=== PATIENT | male | born 1980 | race Caucasian/White ===

== ENCOUNTER 2018-06-07 09:00 | Outpatient (RCR) | payer OTHER, SELFPAY ==
--- NOTE | 2018-06-07 10:03 | BH.SGPN.GN ---
Behaviors/Verbalizations/Mental Status: []Client alert and oriented, casual dress. Eye contact poor. Motor activity appropriate. Speech within normal limits. Affect constricted, mood anxious. Thoughts linear, logical, no signs of hallucinations or delusions. Client Response/Progress/Benefit: []Client responded well to session, contributing to discussion. Client appeared to connect with the quote, stating he has a hard time following through with changes in his life. Client discussed things in life that keep people stuck from obtaining mental wellness. Client listed things he would like to get rid of in his life that are contributing to his mental health symptoms. Client identified low self-esteem, anxiety, depression, fear of failure, poor concentration, and lack of motivation. Client shared if he removed these stressors he would feel more confident and driven. Client participated in the activity that promoted emotional release of things holding client back. Client reported the activity was a fun way to put things into action. Client appeared to benefit from identifying what he would like to remove from his life in order to obtain improved mental wellness.
--- NOTE | 2018-06-07 11:05 | BH.SGPN.GN ---
Behaviors/Verbalizations/Mental Status: []Client alert and oriented, casual dress. Eye contact poor. Motor activity appropriate. Speech within normal limits. Affect constricted, mood anxious, dysthymic. Thoughts linear, logical, no signs of hallucinations or delusions. Client Response/Progress/Benefit: []Client responded well to session, quiet, but participating. Client created a 30-day plan to help client get rid of one of the stressors holding him back from improved mental wellness. Client?s 30-day plan was no more ?zero days? which client described as days where he gets nothing done. Client stated he picked this stressor because by accomplishing something each day it would improve client?s self-esteem. Therapist had to gently challenge client on some of his goals within his 30-day plan as client recognized they may have been too big of goals at this time. Client appeared to benefit from creating a 30-day action plan. Progress limited as it is client?s first day in IOP. Client to continue IOP to prevent decompensation and increase mood stability.
--- NOTE | 2018-06-07 12:43 | BH.COMM ---
Communication Note - Communication with Client Communication Note: Checked in with pt after groups today as this was his first IOP session. Reports that he found the groups to be supportive and educational. Plans to attend again on Tuesday. Denies any concerns. Denies any suicidal ideations, plan, or intent. Future-oriented (daughter's b-day is tomorrow).
--- NOTE | 2018-06-09 09:05 | BH.SGPN.GN ---
Behaviors/Verbalizations/Mental Status: [] Pt eye contact fair, casually dressed, motor activity appropriate, speech normal rate and tone, mood anxious, congruent affect, thoughts linear and logical, no evidence of delusions or hallucinations. Client Response/Progress/Benefit: [] Client reported he is a lot going on right now in his life and it is hard to cope with his stressors. Client shared he is recently and is now in the process of his selling the family home. Client reported last weekend he had a major panic attack when starting to pack up his things. Client shared this weekend he is decided he is going to go stay at a hotel room when his ex- and family go to the house to empty some stuff out. Client reported he is constantly insecure and has completely lost his confidence in himself. Client shared there is a pattern of every 4-5 years in which he has a really good job, things are going well then his disorganization and difficulty completing task results in a great opportunity being thrown away. Client shared the only positive he can identify currently is his little girl just turned two. Client seemed to benefit from support from peers and expressing his thoughts and feelings. Client to continue IOP level of care to stabilize moods, improve daily functioning, and prevent decompensation. Narrative Note: []
--- NOTE | 2018-06-09 11:12 | BH.SGPN.GN ---
Behaviors/Verbalizations/Mental Status: []Client alert and oriented, neatly dressed and groomed. Eye contact good. Motor activity appropriate. Speech within normal limits. Affect flat, mood dysthymic, anxious. Thoughts linear, logical, no signs of hallucinations or delusions. Client Response/Progress/Benefit: []Client responded well to session, engaged through note-taking and sharing when prompted. Client helped the group identify healthy strategies for the different categories of coping skills. Client reported understanding the importance of having a variety of coping skills as each category serves a purpose in managing symptoms. Client created a coping skills menu of coping skills client would like to start incorporating to improve mood and reduce intensity of symptoms. Client?s menu included doing puzzles, exercising, listening to comedy stations, looking at evidence against negative thoughts, and buying himself a small reward. Client appeared to benefit from gaining numerous coping skills and from learning how each coping skill category benefits mental health. Client to continue IOP to prevent decompensation and improve functioning.
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
--- NOTE | 2018-06-09 14:02 | BH.DR.ITP ---
Initial Treatment Plan - Patient Information Visit Information: ADMISSION DATE: EXPECTED LOS: 4-6 weeks Diagnoses:: Major depressive disorder recurrent severe F 33.2 - Problems/Symptoms Problem #1:: Mood instability, depressed mood, decreased energy, difficulty concentrating, recent thoughts of Problem #2:: Anxiety Symptom:: Rumination, panic, intrusive traumatic memories
--- NOTE | 2018-06-09 14:34 | BH.MTP ---
Master Treatment Plan - Patient Information Program Physician:: Dr. Chen Primary Therapist:: Carmen Perry, [facility] - Psychiatric Diagnoses Psychiatric Diagnoses:: Major depressive disorder, recurrent, severe - rule out bipolar disorder-although patient is unable to provide history of a discrete episode of curtis in the past he has multiple symptoms suggestive of mood cycling. Anxiety. Rule out PTSD. Parasomnia-sleep walking/sleep paralysis Diagnosis Code(s):: F 33.2 - Estimated LOS Estimated LOS (in weeks):: 6 Problem/Goal #1 - Problem/Goal #1 Stated Goal:: Client will decrease depression, feeling of worthlessness, and suicidal ideation due to Major Depression Disorder through Intensive Outpatient Program. Description of Barriers: Pt's psychosocial stressors of recently , putting house on market, and potentially losing his job in July are potential barriers to treatment. Pt's distorted thought patterns, low self-confidence, and difficulty concentrating also could hinder treatment progress. Functional Impact: Pt reported symptoms have been long-standing and have been interfering with occupational function. Pt has had multiple jobs over the years which have seemed ideal but notes that he is been unable to maintain job performance. 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 Pt reports his mental health symptoms are keeping him from being able to complete his daily occupational tasks. Pt passive thoughts of with plan in April to use carbon monoxide posioning as method. Denies current plan or intention for suicide. Pt not functioning at baseline. Goal Relevant Strengths/Supports: Pt is intelligent, resilient, and verbalizes motivation to get better. Pt has a 2 year old daughter whom pt identifies as a reason to keep fighting. - Objectives Objective #1 Stated Objective: Identify and replace 3-4 negative self-talk messages that reinforce depressive symptoms. Interventions: Therapist will help client identify distorted, negative beliefs about self and world and replace those messages with positive, affirmative messages. Discharge Criteria: Client will have achieved this goal when can identify at least 3 negative self-talk messages and replace those messages with positive, affirmative messages. Target Date: 07/21/18 Review Date: 07/07/18 Objective #2 Stated Objective: Pt will decrease depressive symptoms AEB pt?s score on the DSM 5 cross-cutting measure and improve pt?s daily functioning. Interventions: Through groups and individual therapy, pt will be provided with education on cognitive distortions, mistaken beliefs, and identifying and combating negative self-talk. Therapist will assist pt with getting back into the activities she once enjoyed as well as increasing healthy coping strategies. Discharge Criteria: Pt will have met this goal when pt?s score on the DSM 5 cross cutting measure for depression has been decreased and per pt?s report daily functioning has improved. Target Date: 07/21/18 Review Date: 07/07/18 Problem/Goal #2 - Problem/Goal #2 Stated Goal:: Reduce overall frequency, intensity, and duration of the anxiety so that daily functioning is not impaired. Description of Barriers: Pt's psychosocial stressors of recently , putting house on market, and potentially losing his job in July are potential barriers to treatment. Pt's distorted thought patterns, low self-confidence, and difficulty concentrating also could hinder treatment progress. Functional Impact: Pt reported symptoms have been long-standing and have been interfering with occupational function. Pt has had multiple jobs over the years which have seemed ideal but notes that he is been unable to maintain job performance. 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 Pt reports his mental health symptoms are keeping him from being able to complete his daily occupational tasks. Pt passive thoughts of with plan in April to use carbon monoxide posioning as method. Denies current plan or intention for suicide. Pt not functioning at baseline. Goal Relevant Strengths/Supports: Pt is intelligent, resilient, and verbalizes motivation to get better. Pt has a 2 year old daughter whom pt identifies as a reason to keep fighting. - Objectives Objective #1 Stated Objective: Client will learn and utilize 2-3 healthy coping strategies to manage his mental health symptoms. Interventions: Therapist will help client develop insight into his mental health triggers and help him find strategies to help manage his symptoms. Discharge Criteria: Client will have met this goal when can identify and has consistently utilized at least 2 healthy coping strategies that help manage his anxious symptoms. Target Date: 07/21/18 Review Date: 07/07/18 Objective #2 Stated Objective: Pt will decrease anxious symptoms AEB pt?s score on the DSM 5 cross-cutting measure improve pt?s daily functioning. Interventions: Through groups and individual therapy, pt will be provided education about anxiety?s impact on body and common physiological reaction to anxiety. Therapist will teach pt appropriate breathing techniques and build healthy coping skills to manage daily anxieties. Discharge Criteria: Pt will have met this goal when pt?s score on the DSM 5 cross cutting measure for anxiety has been decreased and per pt?s report daily functioning has improved. Target Date: 07/21/18 Review Date: 07/07/18
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
--- NOTE | 2018-06-12 09:00 | BH.SGPN.GN ---
Behaviors/Verbalizations/Mental Status: []Client alert and oriented, dress casual, hygiene good. Eye contact poor, often looking away when talking to therapist. Motor activity appropriate. Speech within normal limits. Affect constricted, mood-reporting slightly optimistic. Thoughts linear, logical, no signs of hallucinations or delusions. Reviewed client?s symptom tracker, no risk for suicidal ideation, plan, or intent as of 06/12/18. Client Response/Progress/Benefit: []Client responded well to session, active participant. Client reports feeling ?slightly optimistic? today as client read a book recommended by [facility] psychiatrist over the weekend which helped client gain insight and hope regarding his mental illness. Client shared he is having ?restless? energy [place] Client reported he recognizes these might be warning signs, and client would like to ?let the medication start working? before making any decisions. Client reported ?I can?t pull anything else down, I?ve lost my , job, and daughter.? Client shared although he has a lot of stressors, client is trying to challenge his perspective and think more positively. Client appeared to benefit from reflecting on positives despite current stressors. Progress noted as client reports increased hope, but he continues to struggle with mood instability and negative thinking.
--- NOTE | 2018-06-12 10:12 | BH.SGPN.GN ---
Behaviors/Verbalizations/Mental Status: []Client alert and oriented, casually dressed and groomed. Eye contact good. Motor activity appropriate. Speech within normal limits. Affect congruent, mood euthymic. Thoughts linear, logical, no signs of hallucinations or delusions. Client Response/Progress/Benefit: []Pt was an active participant in discussion and activity as evidenced by pt listening throughout, providing input, and taking notes. Group worked together to come up with common negative forces in their lives which can hold them back from growth. Negative forces included: mental illness, negative thoughts, toxic people, and too many responsibilities. Group then worked together to identify common positive forces which help us grow. These included: Healthy coping skills, positive support, self-care, positive self-talk and asking for help/IOP tx. Pt reported agreeing with other?s definitions of personal growth. Shared that growth is learning and developing as a person after difficult experiences. Pt was attentive during psychoeducation on the importance of utilizing many aspects of positive forces to help one grow. Benefited from group with increased insight and awareness on the impact of negative and positive forces on mental wellness. Progress noted in increased insight. Recommended continued tx to reduce mental health sx severity, increase positive change behaviors, and prevent decompensation. Narrative Note: []
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
--- NOTE | 2018-06-14 11:20 | BH.SGPN.GN ---
Behaviors/Verbalizations/Mental Status: []Client alert and oriented, casually dressed. Eye contact good. Motor activity appropriate. Speech soft. Affect congruent, mood euthymic. Thoughts linear, logical, no signs of hallucinations or delusions. Client Response/Progress/Benefit: []Client responded well to session, active participant. Client was passive during the activity unless prompted by therapist. ?Client able to recognize that when he is passive his opinions and thoughts do not get heard which can make client feel like his ideas are not important. Client helped the group identify strategies to improve communication and client used assertive communication by sharing his ideas. Client?s goal for the week is to identify an accountability person who will help client practice more assertive communication. Client appeared to benefit from practicing assertive communication and setting a goal.
--- NOTE | 2018-06-16 10:20 | BH.SGPN.GN ---
Behaviors/Verbalizations/Mental Status: []Pt alert and oriented, eye contact fair, casually dressed, motor activity appropriate, speech and tone WNL, mood dysthymic, affect congruent, no evidence of delusions or hallucinations. Client Response/Progress/Benefit: []Pt active participant AEB contributing thoughts and ideas to discussion and listening attentively to others. Pt connected with the quote reporting he is often all or nothing. Stating he thinks Either I am completely successful or I have failed. Pt reported he can see how his all or nothing thinking impacts his ability to be successful with the goals in sets for himself. Pt shared his high expectations lead to a lot of disappointment because often the goals he has are unrealistic. Recognizes he is setting himself up for failure. Pt could relate to the SMART goal setting method, connecting importance of setting goals more realistically so have more success. Pt seemed to benefit from rehearsing setting short term goals during activity and learning about SMART goal setting method. Pt gained insight that right from the start in the activity he wanted to set a goal of 100, which if the group went with that goal it likely would not have been accomplished. Seemed to connect importance of smaller goals to build confidence and motivation. Narrative Note: []
--- NOTE | 2018-06-16 11:25 | BH.SGPN.GN ---
Behaviors/Verbalizations/Mental Status: [] Pt alert and oriented, eye contact fair, casually dressed, motor activity appropriate, speech and tone WNL, mood dysthymic, affect congruent, no evidence of delusions or hallucinations. Client Response/Progress/Benefit: [] Pt contributed positively to discussion and attentive to others. Pt reported his SMART goal is for the next week to research finding hobbies he might enjoy. Pt recognized he currently has no hobbies because in the past he did whatever his ex- wanted to do. Pt reported his goal will be beneficial because he will build new ways of coping and prevent self from returning to old unhealthy coping skills. Pt reported barriers could be negative self-talk and not liking to be around people. Pt shared strategies t ohelp him overcome this barrier to be reminding self of benefits of following through. Pt seemed to benefit from identifying a short term goal that will help him move closer to his intermediate card tender goal of mental wellness. Pt to continue IOP level of care to decrease depression, increase healthy coping, and prevent decompensation. Narrative Note: []
--- NOTE | 2018-06-16 13:42 | BH.MDN ---
Multi-Disciplinary Note - Note 30-min Individual Time Started:: 12:20 Date: 06/16/18 Purpose of session/treatment goals addressed:: Purpose of session was to assess pt's current symptoms and stressors. Also, explored increasing extracurricular activities, psychoeducation on bipolar disorder, and challenging distorted thought patterns. Eye Contact:: Poor Motor Activity:: Restless Appearance:: Casual Speech:: Appropriate Mood:: Dysthymic Affect:: Congruent Thoughts:: Linear, Logical Staff Interventions:: Therapist used open ended questions to elicit pt's current symptoms and stressors. Therapist provided psychoeducation about bipolar disorder common symptoms and behaviors. Therapist discussed increasing extracurricular activities, provided pt with homework to research activities that he would be interested in trying. Thearpist inquired about thought record given previous individual session for homework. Therapist worked with pt to identify and reframe distorted thought patterns. Client Response:: Pt reported Time Stopped:: 12:50
--- NOTE | 2018-06-20 10:34 | BH.MTP_ITS ---
Master Treatment Plan - Patient Information Program Physician:: Dr. Chen Primary Therapist:: Carmen Perry, [facility] - Psychiatric Diagnoses Psychiatric Diagnoses:: Major depressive disorder, recurrent, severe - rule out bipolar disorder-although patient is unable to provide history of a discrete episode of curtis in the past he has multiple symptoms suggestive of mood cycling. Anxiety. Rule out PTSD. Parasomnia-sleep walking/sleep paralysis Diagnosis Code(s):: F 33.2 - Estimated LOS Estimated LOS (in weeks):: 6 Problem/Goal #1 - Problem/Goal #1 Stated Goal:: Client will decrease depression, feeling of worthlessness, and suicidal ideation due to Major Depression Disorder through Intensive Outpatient Program. Description of Barriers: Pt's psychosocial stressors of recently , putting house on market, and potentially losing his job in July are potential barriers to treatment. Pt's distorted thought patterns, low self- confidence, and difficulty concentrating also could hinder treatment progress. Functional Impact: Pt reported symptoms have been long-standing and have been interfering with occupational function. Pt has had multiple jobs over the years which have seemed ideal but notes that he is been unable to maintain job performance. 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 Pt reports his mental health symptoms are keeping him from being able to complete his daily occupational tasks. Pt passive thoughts of with plan in April to use carbon monoxide posioning as method. Denies current plan or intention for suicide. Pt not functioning at baseline. Goal Relevant Strengths/Supports: Pt is intelligent, resilient, and verbalizes motivation to get better. Pt has a 2 year old daughter whom pt identifies as a reason to keep fighting. - Objectives Objective #1 Stated Objective: Identify and replace 3-4 negative self-talk messages that reinforce depressive symptoms. Interventions: Therapist will help client identify distorted, negative beliefs about self and world and replace those messages with positive, affirmative messages. Discharge Criteria: Client will have achieved this goal when can identify at least 3 negative self-talk messages and replace those messages with positive, affirmative messages. Target Date: 07/21/18 Review Date: 07/07/18 Objective #2 Stated Objective: Pt will decrease depressive symptoms AEB pt?s score on the DSM 5 cross-cutting measure and improve pt?s daily functioning. Interventions: Through groups and individual therapy, pt will be provided with education on cognitive distortions, mistaken beliefs, and identifying and combating negative self-talk. Therapist will assist pt with getting back into the activities she once enjoyed as well as increasing healthy coping strategies. Discharge Criteria: Pt will have met this goal when pt?s score on the DSM 5 cross cutting measure for depression has been decreased and per pt?s report daily functioning has improved. Target Date: 07/21/18 Review Date: 07/07/18 Problem/Goal #2 - Problem/Goal #2 Stated Goal:: Reduce overall frequency, intensity, and duration of the anxiety so that daily functioning is not impaired. Description of Barriers: Pt's psychosocial stressors of recently , putting house on market, and potentially losing his job in July are potential barriers to treatment. Pt's distorted thought patterns, low self- confidence, and difficulty concentrating also could hinder treatment progress. Functional Impact: Pt reported symptoms have been long-standing and have been interfering with occupational function. Pt has had multiple jobs over the years which have seemed ideal but notes that he is been unable to maintain job performance. 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 Pt reports his mental health symptoms are keeping him from being able to complete his daily occupational tasks. Pt passive thoughts of with plan in April to use carbon monoxide posioning as method. Denies current plan or intention for suicide. Pt not functioning at baseline. Goal Relevant Strengths/Supports: Pt is intelligent, resilient, and verbalizes motivation to get better. Pt has a 2 year old daughter whom pt identifies as a reason to keep fighting. - Objectives Objective #1 Stated Objective: Client will learn and utilize 2-3 healthy coping strategies to manage his mental health symptoms. Interventions: Therapist will help client develop insight into his mental health triggers and help him find strategies to help manage his symptoms. Discharge Criteria: Client will have met this goal when can identify and has consistently utilized at least 2 healthy coping strategies that help manage his anxious symptoms. Target Date: 07/21/18 Review Date: 07/07/18 Objective #2 Stated Objective: Pt will decrease anxious symptoms AEB pt?s score on the DSM 5 cross-cutting measure improve pt?s daily functioning. Interventions: Through groups and individual therapy, pt will be provided education about anxiety?s impact on body and common physiological reaction to anxiety. Therapist will teach pt appropriate breathing techniques and build healthy coping skills to manage daily anxieties. Discharge Criteria: Pt will have met this goal when pt?s score on the DSM 5 cross cutting measure for anxiety has been decreased and per pt?s report daily functioning has improved. Target Date: 07/21/18 Review Date: 07/07/18
--- NOTE | 2018-07-14 12:11 | BH.NA_ITS ---
Physical Data - Vital Signs Pulse Rate: 68 Respiratory Rate: 14 Blood Pressure: 124/82 - Height/Weight Height: 1.82 m Weight:: 97.976 kg Weight in Pounds: 216.0 lbs Current Medication Compliance - Medication Compliance Do you take your medication as prescribed?: Yes Do you need assistance with taking medication?: No Have you had side effects from medication?: No Nutritional History - Appetite Nutritional Instructions:: If client shows signs of a swallowing problem, weight change of 10 pounds or more in the last month, or is on a diabetic diet, the physician will review and request a dietitian consult, as appropriate. All unintentional weight loss will be referred to the physician for decision on need for dietitian consult. Describe your appetite:: Good Have you noticed a change in your eating habits lately?: No Functional Assessment - Sleep Pattern Describe any problems with sleeping: Client endorses excessive tiredness, taking two 2-hour naps daily - Activities Motor Activity:: Functional Sensory/Communication Assess - Hearing Problems Do you have any hearing problems?: Adequate - Communication Problems Do you have difficulty understanding what people are saying?: No Do you have trouble putting your thoughts into words or expressing what you want to say?: No Do people ever have trouble understanding what you say?: No What is your primary language?: [place] Learning Assessment - Education What is your level of education?: Master Degree - Learning Barriers Learning Barriers:: Ready to learn Medical Problems/History - Pain Assessment Do you have acute or chronic pain?: No Substance Abuse - Substance Abuse Please describe substance abuse in the last 30 days:: Past ETOH, tobacco, and illicit substance use. Last use: [id number], [id number], [id number]. Mental Status Summary - Mental Status Significant Findings/Observations on Appearance and Mood:: yS is an A&Ox4 38-year-old male who is cooperative with interview. Neat grooming and hygiene, casually dressed. Normal activity and good eye contact. Speech is clear and of normal rate and volume. Mild anxiety and depression with mood congruent affect. Logical asosciations and normal process. Average knowledge. No symptoms of delusions. Denies hallucinations, SI, and HI. Suicide Assessment - Suicidal Ideation Are you currently or have you been suicidal in the past?: Yes Suicidal Intentional Rating Scale (SIRS): Suicidal thoughts (past) - fleeting thoughts of , not necessarily SI Physician Notification: If Active suicidal thoughts/Will not contract for safety is checked, contact physician and document in the Physician Notification section below. Fall Risk Assessment - Age Age: Less than 60 - Mental Status Mental Status: Willing & able to ask for assistance when needed - Physical Status Physical Status: No problems - Impairments Impairments: None - Elimination Elimination: Continent AND independent - Gait or Balance Gait or Balance: Walks independently - Hx of Falls History of falls in the past 6 months: No known history - Medications/Substances Psychotropics:: Antidepressants, Mood stabilizers Medications/substances used within the past 24 hours or ordered to administer: 1-2 of the medications/substances listed above - Total Score Total Points:: 1 Physician Notification - Physician Notification Physician Notified: Paulette Chen Method of Notification: Face to Face Comments: treatment planning discussion RN Summary of Impressions - Impressions Recommendations: Include psychiatric and medical issues, treatment planning recommendations, and discharge planning needs. Impressions: Psychiatric Issues: bipolar 2?, PTSD, ADHD? Impression: General Medical Conditions: N/A - Level of Care How do the client's current symptoms and functional deficits support need for this level of care?: Client notes increased mental health symptoms since April 2018, which he associates with divorce from his and all of the stress surrounding that, including the sale of his house. Sy describes labile moods and inability to perform at his job. He notes that since he saw Dr. Chen, he has read the book [place], and does identify with a lot of the content. Sy endorses increased sleep at night and during the day, recognizing that it is a way of escape and avoidance. He currently has limited support with all of the life changes happening. He denies urges to drink or use illicit substances, noting maintained sobriety. IOP will promote socialization and gain while preventing further decompensation of mental health symptoms.
[2018-07-14 12:37] VITALS: BP 124/82; PULSE 68; RESP 14
== END 2018-06-18 23:59 ==
LOC: BHIOP 09:00
PROVIDERS: Visit Provider Psychiatry & Neurology Psychiatry
DX: F32.9 Major depressive disorder, single episode, unspecified (principal); F41.9 Anxiety disorder, unspecified; G47.59 Other parasomnia; F51.3 Sleepwalking [somnambulism]; G47.14 Hypersomnia due to medical condition; Z79.899 Other long term (current) drug therapy; Z87.891 Personal history of nicotine dependence
CPT/HCPCS: H0035; 90832; 90853

== ENCOUNTER 2018-06-21 09:00 | Outpatient (RCR) | payer OTHER, SELFPAY ==
--- NOTE | 2018-06-21 09:05 | BH.SGPN.GN ---
Behaviors/Verbalizations/Mental Status: []Client alert and oriented, dress casual. Eye contact fair- looking away at times. Motor activity appropriate. Speech soft. Affect constricted, mood dysthymic. Thoughts linear, logical, no signs of hallucinations or delusions. Reviewed client?s symptom tracker, no risk for suicidal ideation, plan, or intent as of 06/21/18. Client Response/Progress/Benefit: []Client responded well to session, quiet, but he was often nodding in agreement. Client reports feeling ?present? today stating, ?I feel like I can network here and it?s nice to be around people that get me.? Client identified his current positives as making it to group today despite feeling low and going to [employer] yesterday. Client reported he continues to struggle with coping with his mental health symptoms, sharing he continues to have racing thoughts, low motivation, and hypersomnia. Client stated he is hoping the medication starts working as client recognizes he knows the coping skills, but client feels unable to use them due to racing thoughts. Client appeared to benefit from emotional support and strategies provided by peers. Progress variable as client continues to struggle with lack of symptom alleviation, but he is improving with reframing negative thoughts. Client to continue IOP to prevent decompensation and medication monitoring. ?
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
--- NOTE | 2018-06-23 10:20 | BH.SGPN.GN ---
Behaviors/Verbalizations/Mental Status: [] Pt eye contact fair, casually dressed, motor activity appropriate, speech normal rate and tone, mood euthymic, congruent affect, thoughts linear and intact, no evidence of delusions or hallucinations. Client Response/Progress/Benefit: [] Client passive participant as evidenced by limited contributions to discussion however did appeared to be engaged as evidenced by making eye contact and nodding at peers comments. Client seemed to relate to others comments that her thoughts can create situations that are not really there or make his situation worse based on how one is thinking. Client connected with the distortion of mind reading because often he will believe he knows how somebody is thinking about him which increases anxiety and it impacts his decision making. Client related to many of the other distortions discussed with the group and seemed to benefit from increased awareness of cognitive distortions and how distortions can impact ones functioning. Narrative Note: []
--- NOTE | 2018-06-23 11:30 | BH.SGPN.GN ---
Behaviors/Verbalizations/Mental Status: []Pt eye contact fair, casually dressed, motor activity appropriate, speech normal rate and tone, mood euthymic, congruent affect, thoughts linear and intact, no evidence of delusions or hallucinations. Client Response/Progress/Benefit: [] Client showed increased engagement compared to previous group session as evidenced by contributions made during small group discussion and worked cooperatively with others to identify examples of distorted thought patterns. Client could relate to the distortion of over generalizing and catastrophizing. Client seemed to benefit from increased awareness of the impact start that parents can have on emotions and behavior as well as having opportunity to practice reframing and challenging distorted thoughts. Client to continue IOP level of care to maintain gains, stabilize mood, and prevent decompensation. Narrative Note: []
--- NOTE | 2018-06-23 14:01 | BH.MDN ---
Multi-Disciplinary Note - Note 45-min Individual Time Started:: 09:05 Date: 06/23/18 Purpose of session/treatment goals addressed:: Purpose of session was to assess current symptoms and stressors. Other topics included: gathering additional background information, review homework from last session, and discuss healthy coping skills. Eye Contact:: Poor - scans environment, makes minimal eye conact Motor Activity:: Appropriate Appearance:: Casual Speech:: Appropriate Mood:: Anxious, Depressed Affect:: Congruent Thoughts:: Linear, Logical, No evidence of hallucinations/delusions noted Staff Interventions:: Therapist used open ended questions to elicit pt's current symptoms and stressors. Therapist inquired about pt's homework from last session, discussed barriers that prevent pt from completing homework. Therapist used probing questions to gather additional backgroun information. Therapist discussed healthy coping to help with managing depressive symptoms. Therapist provided support by using active listening and validating emotions. Client Response:: Pt reported he has been having continued difficulty with managing his mental health symptoms. Pt reported having racing thoughts and low motivation. Pt shared he did not complete his homework from last individual session of identifying different extracurricular activities he could engage in. Pt identified his decreased motivation to be contributing factor to not wanting to complete his homework. Pt collaborated with therapist to identify different activities he could engage in that would get him out of the house, which could help decrease his depressed symptoms. Pt connected with therapist education about the impact of opposite action can have on decreasing depression. Pt reported he is willing to try and go on walks and he could take his dog with him. Pt open to idea of taking daughter to library to get himself out of the house and spend quality time with his daugher. Risks/Concerns:: Pt denies suicidal thoughts, plan or intention to date. Progress Toward Goals/Plan:: Pt progress decompensating AEB pt report of struggling to manage mental health symptoms. Pt struggling to apply healthy skills consistently especially when struggling with low motivation. Pt continuing to experience racing thoughts and hypersomnia. Pt having difficulty with challenging unhelpful thinking pattenrs. Pt progressing with improved awareness of his unhelpful thoughts, but struggling with applying skills. Pt to continue IOP level of care to improve mood stability, decrease depression, and prevent decompesnation. Time Stopped:: 09:50
--- NOTE | 2018-06-26 09:05 | BH.SGPN.GN ---
Behaviors/Verbalizations/Mental Status: [Client maintained good, consistent eye contact and was able to provide input to discussion. Client was casually dressed and appeared to have placed effort into attire AEB referencing wearing his favorite baseball team's apparel, appropriate grooming/hygiene. Motor activity WNL. Client speech was a normal rate and optimistic tone, mood euthymic and expressed as hopeful , affect congruent with mood, thoughts linear and logical, no evidence of delusions or hallucinations. Therapist reviewed client?s symptom tracker to assess for intensity of mental health symptoms and identify risk for suicide. No signs of suicidal ideation, plan, or intent to date.] Client Response/Progress/Benefit: [Point responded well to session and openly shared thoughts, feelings, and opinions. He did well to provide supportive feedback to fellow participants and gently challenge their use of distorted thinking patterns or unhealthy coping mechanisms. Client identified that he has been able to connect with fellow participants working on sobriety as client has previously struggled with substance use. Client benefited from reflecting upon his own progress since becoming sober and how this has impacted his mental health symptoms. He indicated that since refraining from using any mind altering substances he has felt raw emotionally and as though he is finding out who I am for the first time. Client indicated that the hardest time for him is when he is bored as this can be uncomfortable he does not note to do with himself. Client discussed additionally working on identifying healthy means for coping and not avoiding his emotions as they arise. Client displaying progress in his ability to identify areas in which she is beginning to see positive changes in his mental health and challenging himself to look at things with a more positive perspective. He indicated recently titrating up on medications and that he has been reminding himself not to give up if not seeing results as quickly as he would like. Client reports additionally working on accepting that changes the part of life and finding ways in which is able to better manage changes as they occur.] Narrative Note: []
--- NOTE | 2018-06-26 10:30 | BH.SGPN.GN ---
Behaviors/Verbalizations/Mental Status: []Client alert and oriented, neatly dressed and groomed. Eye contact fair. Motor activity appropriate. Speech within normal limits. Affect congruent, mood euthymic, anxious. Thoughts linear, logical, no signs of hallucinations or delusions. Client Response/Progress/Benefit: []Client responded well to session, active participant. Client reported one can have external conflict and internal conflict. Client described internal conflict as conflicting values, beliefs, and emotions. Client identified barriers to resolving conflict such as cognitive distortions, self-doubt, and fear of conflict. Client helped the group discuss the four different conflict resolution styles including when it is helpful and not helpful to use each style. Client shared he is most often the accommodating type as client does not share his thoughts during a conflict and lets others take control. Client reported his conflict resolution style negatively impacts client because ?I keep all my emotions in and then I explode.? Client appeared to benefit from gaining awareness of how client?s current conflict resolution style impacts mental health and relationships. Client to continue IOP as client reports improved insight, but he continues to struggle with managing negative thoughts and increased motivation.
--- NOTE | 2018-06-26 11:35 | BH.SGPN.GN ---
Behaviors/Verbalizations/Mental Status: []Client alert and oriented, neatly dressed and groomed. Eye contact good. Motor activity appropriate. Speech within normal limits, more assertive than usual. Affect congruent, mood euthymic. Thoughts linear, logical, no signs of hallucinations or delusions. Client Response/Progress/Benefit: []Client responded well to session, active participant. Client participated in the group activity and demonstrated progress as he used more assertive communication and a collaborative conflict resolution style to help the group make decisions. Client shared focusing on the issues and weighing the pros and cons positively impacted conflict resolution. Client helped the group identify strategies to more effectively manage conflict such as focusing on the most important thing, using calm tone of voice, managing stress, and working on one issue at a time. Client shared he wants to become more assertive in conflict, so he can get his ideas heard and his needs met. Client to continue IOP as he reports increased self-awareness, but client continues to struggle low motivation and following through with goals which may hinder progress.
--- NOTE | 2018-06-29 10:10 | BH.SGPN.GN ---
Behaviors/Verbalizations/Mental Status: [] Pt eye contact fair, casually dressed, motor activity appropriate, speech normal rate and tone, mood dysthymic, congruent affect, thoughts linear and intact, no evidence of delusions or hallucinations. Client Response/Progress/Benefit: [] Client active participant as evidenced by many contributions throughout group discussion and attentive to others. Client could relate to the quote that his thoughts and behaviors have contributed to him staying stuck and not moving towards where he wants to be in life. 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 Client seemed to benefit from increased awareness of his thought patterns and impact negative thoughts can have on progress. Narrative Note: []
--- NOTE | 2018-06-29 11:10 | BH.SGPN.GN ---
Behaviors/Verbalizations/Mental Status: [] Pt eye contact fair, casually dressed, motor activity appropriate, speech normal rate and tone, mood dysthymic, congruent affect, thoughts linear and intact, no evidence of delusions or hallucinations. Client Response/Progress/Benefit: [] Client engaged throughout discussion and completed worksheet. Client identified a thought to focus on for the worksheet to be I cannot handle change of any kind. Client identified this thought to be unrealistic because changes a part of life. Client shared the negative thought tends to lead to poor choices or no choice at all. Client shared the negative thought results in a self-defeating prophecy because he does not handle the change due to lack of effort and decision-making. Client struggled with reframing of thought but with assistance was able to identify a helpful reframe. Client identified his reframe to be in the past I have been able to handle change which shows I can do that again. Client seemed to benefit from practicing in the moment reframing and challenging his negative thoughts. Narrative Note: []
--- NOTE | 2018-06-30 09:10 | BH.SGPN.GN ---
Behaviors/Verbalizations/Mental Status: [] Pt eye contact good, casually dressed, motor activity appropriate, speech normal rate and tone, mood euthymic, congruent affect, thoughts linear and intact, no evidence of delusions or hallucinations. Reviewed client?s symptom tracker, no signs of suicidal ideation, plan, or intent as of today. Client Response/Progress/Benefit: [] Client reported one positive is he spends a nice evening with his daughter which client stated tends to put him in a positive mood. Client reported another positive is finally getting the mental health treatment he has needed because he feels like he is being listened to and making forward progress. Client stated his stressor currently is needing to find a apartment before his house closes on July 24. Client stated feeling optimistic this morning. Client demonstrating progress as evidenced by increased focus on the positive and increased hope he can get through his stressors. Client to continue IOP level of care to stabilize moods, maintain gains and prevent decompensation. Narrative Note: []
--- NOTE | 2018-06-30 14:02 | BH.MDN ---
Multi-Disciplinary Note - Note 60-min Individual Time Started:: 10:10 Date: 06/30/18 Purpose of session/treatment goals addressed:: Purpose of session was to assess pt's current symptoms and stressors. Other topic: processed recent stressor and identified consequences of procrastination. Eye Contact:: Poor Motor Activity:: Restless Appearance:: Casual Speech:: Appropriate Mood:: Anxious Affect:: Congruent Thoughts:: Linear, Logical, No evidence of hallucinations/delusions noted Staff Interventions:: Therapist used open ended questions to elicit pt's current symptoms and stressors. Therapist elicited progress and positives from last week. Therapist processed stressor of needing to find apartment before house closes next month. Therapist assisted pt with identifying consequences of procrastination and igonring things that make pt anxious. Therapist provided support by using active listening and challenging pt's distorted thoughts. Therapist provided homework for pt to contact at least 2 apartment places to schedule a tour. Client Response:: Pt reported he is feeling more hopeful today compared to last week. Pt stated he has been spending more quality time with his daughter, which has been helpful. Pt reported his biggest stressor is needing to find an apartment before his closing date on his house next month. Pt stated he has been setting goals for himself to research apartments, but when he starts to do so he becomes overwhelmed and quits. Pt able to recognize avoidance of anxiety provoking situations is what he usually does to deal with the uncomfortable emotions. With assistance from therapist pt able to recognize if he continues to avoid the stressor of finding an apartment it will result in self sabotage because he will have no place to live once his house closes. Pt worked with therapist to identify what he is looking for in an apartment and strategies to help pt narrow down all the options which result in pt feeling overwhelmed. Pt agreeable to contact at least 2 apartment places over weekend. Risks/Concerns:: Pt denies suicidal ideation, plan or intention to date. Progress Toward Goals/Plan:: Pt demonstrating progress AEB pt reporting improved connection with his daughter becuase he is intentionally spending quality time with his daughter. Pt also progressing with improved outlook on life by challenging his distorted thoughts and focusing on any positives in his life. Pt current stressor of finding a place to live is contributing to increased anxious symptoms, however pt is aware he is reverting back to old ways of dealing with anxiety. Pt open to trying new way of dealing with anxiety by facing his stressor. Pt to continue IOP level of care to decrease anxiety, improve use of healthy coping, and prevent decompensation. Time Stopped:: 11:00
--- NOTE | 2018-07-03 09:05 | BH.SGPN.GN ---
Behaviors/Verbalizations/Mental Status: []Client alert and oriented, neatly dressed and groomed. Eye contact good. Motor activity appropriate. Speech within normal limits. Affect congruent, mood euthymic. Thoughts linear, logical, no signs of hallucinations or delusions. Reviewed client?s symptom tracker, no risk for suicidal ideation, plan, or intent as of 07/03/18. Client Response/Progress/Benefit: []Client responded well to session, smiling and connecting with peers. Client reports feeling ?optimistic? today sharing he is finally starting to see true progress and feel better. Client shared he continues to have racing thoughts, but client is able to control and challenge them. Client identified several positives including spending time with his daughter without getting anxious, actively using CBT and DBT skills, and calling apartments for his move. Client stated titrating up in medication is a stressor, but client thinks it will benefit him. Client contributes his progress to coping skills, medication, and support given by IOP stating, ?coming here was huge, I feel like I belong for once.? Client appeared to benefit from reflecting on progress. Progress noted as evidenced by improved outlook and symptoms managements, but he can continue to benefit from maintenance and challenging all or nothing thoughts.
--- NOTE | 2018-07-03 10:15 | BH.SGPN.GN ---
Behaviors/Verbalizations/Mental Status: []Client alert and oriented, neatly dressed and groomed. Eye contact good. Motor activity appropriate. Speech within normal limits. Affect congruent, mood euthymic. Thoughts linear, logical, no signs of hallucinations or delusions. Client Response/Progress/Benefit: []Pt listened attentively to others and contributed to discussion at times. Pt reported having social support is helpful because when he doesn't have support it makes he feels lonely and more anxious. Pt shared he recognizes of the years some of the people in his life whom he though were supportive are unhealthy and impacted his mental health. Pt could relate to others that having support is beneficial to have accountability and someone to openly share thoughts and feelings with instead of stuffing emotions. Pt seemed to benefit from reflecting on the impact the various types of support has had on him, as well as group discussion about positive qualities of a healthy support person. Narrative Note: []
--- NOTE | 2018-07-03 11:15 | BH.SGPN.GN ---
Behaviors/Verbalizations/Mental Status: []Client alert and oriented, casually dressed and neatly groomed. Eye contact good. Motor activity appropriate. Speech within normal limits. Affect congruent. Mood anxious. Thoughts linear, logical, no signs of hallucinations or delusions. Client Response/Progress/Benefit: []Pt engaged and active participant AEB sharing thoughts and feelings as well as listening to others. pt able to identify benefits to the different types of social support. Pt identified it's important to remember that he can't control other people's reactions and needs to focus on what he can control instead of ruminating on what is out of his control. Pt identified he thinks increasing his personal relationships would be helpful to him. Pt seemed to benefit from increased awareness of the different types of social support. Pt to continue IOP to stabilize moods and prevent decompensation. Narrative Note: []
--- NOTE | 2018-07-03 16:32 | BH.MDN ---
Multi-Disciplinary Note - Note 45-min Individual Time Started:: 12:19 Date: 07/03/18 Purpose of session/treatment goals addressed:: Purpose of session was to assess pt's current symptoms and stressors. Other topics: reviewed homework and discussed healthy coping/calming skills. Eye Contact:: Fair Motor Activity:: Appropriate Appearance:: Casual Speech:: Appropriate Mood:: Euthymic Affect:: Congruent Thoughts:: Linear, Logical, No evidence of hallucinations/delusions noted Staff Interventions:: Therapist used open ended questions to elicit pt's current symptoms and stressors. Therapist reviewed homework from last session. Therapist processed current stressor, discussed strategies that have helped pt move foward. Provided psychoeducation about calming strategies that can help pt manage his mental health symptoms. Support provided by using active listening. Client Response:: Pt reported he is feeling more optimistic today compared to last week. Pt reported he followed through with his goal of calling apartment places to set up tour. Pt stated he has been able to set up one tour, but reported he can't take the tour until he fills out a ton of paperwork in regards to financial situation and employment. Pt noted some concern it will take him a long time to complete the paperwork because might get overwhelmed. With coaching pt recognized he was jumping to conclusions and able to remind himself the importance of breaking up the paperwork into manageable parts. Pt connected with the breathing and grounding tools taught to him. Pt agreeable to try out the different skills discussed today to help him manage his anxieties around the apartment search. Risks/Concerns:: Pt denies suicidal ideation, plan or intention to date. Progress Toward Goals/Plan:: Pt demonstrating progress AEB pt following through with goal of calling apartment places. Pt stated in the past this is a task he would have avoided because it would be too anxiety provoking. Pt making strides with increased independence and at times able to manage anxious symptoms enough to help him complete a task. Pt to continue IOP level of care to stabilize moods, decrease anxiety, and prevent decompensation. Time Stopped:: 12:57
--- NOTE | 2018-07-05 09:05 | BH.SGPN.GN ---
Behaviors/Verbalizations/Mental Status: [] Eye contact is good. Motor activity is appropriate. Appearance is casual. Speech is Appropriate. Mood is anxious. Affect is congruent. Thoughts are linear and logical. No evidence of psychosis. Reviewed daily check in sheet and no reports of suicidal ideations or intent. Client Response/Progress/Benefit: [] Pt spoke only when prompted however appeared attentive during group discussion AEB heading nodding. Emotions for today was fearful of the future. Shared with the group that he is continuing to search for apartments and feels that he is making progress. Continues to report daily mood management issues and concerns and does not feel that he is at baseline. Shared that he is at times more drowsy with anhedonia however understands that he medication is not quite at therapeutic level. Shared that he feels that he is improving as evidenced by reduction in racing thoughts and increased concentration (able to read books). Benefited from group support and encouragement. Progress noted per pt report. Will continue in IOP to prevent decompensation, stabilize mood, and increase daily functioning to return to work. Narrative Note: []
--- NOTE | 2018-07-05 10:14 | BH.SGPN.GN ---
Behaviors/Verbalizations/Mental Status: [Client actively engaged and positive group participant. He maintained good eye contact. Client casually and comfortably dressed - wearing a hat. Appropriate grooming/hygiene. Motor activity WNL - appearing calm/relaxed. Client speech was a normal rate and tone - utilized humor and thoughtful remarks, mood euthymic -self-reflective, affect congruent with mood, thoughts linear and logical, no evidence of delusions or hallucinations.] Client Response/Progress/Benefit: [Client responded well to session and remained engaged throughout. He worked with the group to discuss the importance of change and the role change can play in mental health sx management as well as how not making changes can also impact mental health. Client provided several examples when brainstorming with the group potential reasons change may be a difficult thing to accomplish and appeared to benefit from reflecting upon the healthy changes he would like to implement in his own life as well as the potential barriers to making those changes. Client making progress regarding insight into his own personal barriers as well as how they impact his ability to make progress and further indicated that poor boundaries, lack of motivation and accountability, as well as negative self-talk has prevented him from improving his overall self-esteem and willingness to prioritize his own mental health needs. Client indicated connecting with several of the barriers shared by fellow participants regarding making healthy changes and could identify areas in his own life he struggles with similar issues. Client would benefit from continued IOP tx with focus on addressing challenging self-doubt and negative core-beliefs. ] Narrative Note: []
--- NOTE | 2018-07-07 09:15 | BH.SGPN.GN ---
Behaviors/Verbalizations/Mental Status: []Client alert and oriented, neatly dressed and groomed. Eye contact fair. Motor activity appropriate. Speech within normal limits. Affect congruent, mood euthymic, anxious. Thoughts linear, logical, no signs of hallucinations or delusions. Reviewed client?s symptom tracker, no risk for suicidal ideation, plan, or intent as of 07/07/18. Client Response/Progress/Benefit: []Client responded well to session, receptive to feedback from peers. Client reports feeling ?optimistic? today as client has seen progress with his hypersexual thoughts reducing and he has come to the realization ?that I matter and can say no.? Client reports his current stressor is setting a boundary with his ex- regarding selling their home. Client shared ?I?ve always given her whatever she wanted and felt like my boundaries didn?t matter.? Client recognized his low self-esteem and difficulty setting boundaries comes from his childhood. Client was receptive to feedback from peers and reported group has helped him realize he is not alone. Client also shared group has helped him fail in a structured setting and realize he is okay. Client reports plan to remind himself of the positives of setting this boundary to reduce anxiety. Client appeared to benefit from support given by peers and from reflecting on progress. Progress noted as shown by client?s improved mood, but he continues to struggle with low self-esteem and communicating his needs.
--- NOTE | 2018-07-07 12:14 | PN_ITS ---
Progress Note Patient is seen in follow-up for major depressive disorder rule out bipolar disorder, anxiety, PTSD. History is been obtained per interview with patient, discussion with staff, review of chart. Case discussed with treatment team. Chief complaint -Mood symptoms A little edge off of it Interim history Mixed mood symptoms persist but of decreased intensity over the past 3-4 weeks. Continued depressive symptoms wax and wane. Continues to have racing thoughts but of decreased intensity. Less hypersexual. Decreased irritability. Attr ibutes improvement to coping skills gained through IOP and initiation of Lamictal. Staff identifies dependent traits in dynamics with during family session. No suicidal or homicidal ideation. No symptoms consistent with psychosis. Sleeping from midnight to 7 AM. Describes sleep as restful and improved. Appetite normal. Denies nausea vomiting or diarrhea. Consuming 1 extra large [employer] coffee in the morning and 3 caffeinated sodas before 3 PM. Reports this is a reduction in caffeine. Denies ingestion of alcohol. Compliant with Lamictal 75 mg daily. No rash. Denies adverse effects. Mental status exam Alert and oriented . No acute distress. Ambulatory with normal gait and station. Appears stated age. Casually dressed and groomed. Appropriate hygiene. Cooperative with interview. Good eye contact. No psychomotor agitation or retardation. Mood mildly depressed but improved. Affect congruent. Speech is clear and with regular rate and rhythm. Language fluent. Thought process organized. Associations logical. Thought content significant for ruminative anxiety. No suicidal or homicidal ideation related or detected. No symptoms consistent with psychosis noted or detected. Immediate recent and remote memory grossly intact. Attention and concentration are fair. Estimated intelligence and fund of knowledge average. Judgment and insight good. Lab work is been requested from primary care physician. Further lab work will be obtained as needed. Diagnosis Major depressive disorder. Rule out bipolar disorder-although patient is unable to provide a history of a discrete episode of curtis in the past he has multiple symptoms suggestive of mood cycling. Anxiety Rule out PTSD Parasomnia-sleep walking/sleep paralysis Plan Continue IOP. Structured setting is necessary to maintain gains and prevent decompensation. Risk-benefit alternative of medications discussed with patient. Patient acknowledges understanding. Increase Lamictal to 100 mg daily starting this Tuesday. Dispense number 3100 mg tablets with 1 refill. Ongoing alcohol abstinence encouraged. Cannabis abstinence encouraged. Encouraged to reduce caffeine. Encouraged to establish with outpatient providers for when IOP complete. Patient acknowledges understanding and is in agreement with plan. Feels able to maintain safety. Agrees to seek help or emergency care if feeling unsafe to self or others. 16 minutes supportive psychotherapy provided.
--- NOTE | 2018-07-10 09:03 | BH.SGPN.GN ---
Behaviors/Verbalizations/Mental Status: [Client maintained good eye contact, casually and comfortably dressed, motor activity WNL, speech normal rate and tone, mood euthymic, positive expressed as optimistic, affect congruent, bright, thoughts linear and logical, no evidence of delusions or hallucinations. Therapist reviewed client?s symptom tracker to assess for intensity of mental health symptoms and identify risk for suicide. No signs of suicidal ideation, plan, or intent to date.] Client Response/Progress/Benefit: [Client receptive of session and engaged in discussion throughout. Client benefitted from reflecting with the group upon areas of in which he has begun to recognize in his own life. Client discussed that for the first time since beginning the IOP program he has felt actually optimistic. CLient went on to explain that he had previously expressed the sentiment but that he had not really believed it when saying it. Client reflected that he is noticing changes and improvements in his ability to better manage anxiety as well as use the information he had learned regarding warning signs and triggers to prevent from escalating when experiencing sx of anxiety or depression. CLient discussed spending time with his daughter over the weekend and engaging in self-care activities such as walking and going for a jog which he indicated had contributed in lessening his overall worries and decreased rumination by allowing for client to be more present. CLient progressing in overall ability to consistently apply skills learned and internalize treatment content discussed. Client continues to report difficulties in maintaining healthy boundaries with others and would benefit from working to further improve use of assertive communication and healthy boundary setting.] Narrative Note: []
--- NOTE | 2018-07-10 10:32 | BH.SGPN.GN ---
Behaviors/Verbalizations/Mental Status: [] Pt eye contact good, casually dressed, motor activity appropriate, speech normal rate and tone, mood euthymic, congruent affect, thoughts linear and intact, no evidence of delusions or hallucinations. Client Response/Progress/Benefit: [] Client active and engaged throughout group session as shown by client 200,000 feelings throughout discussion as well as listening attentively to others. Client reported starting to see impossible situations as opportunities is a significant perspective shift. Client shared he can think of many situations throughout his life in which she thought something was impossible which resulted in him not trying. Client could connect with the impact predicting the future or negative thoughts can have on trying something new. Client seemed to benefit from increased awareness of how it is important to challenge his negative mindset and problem solve a different idea to overcome something that seems impossible to complete. Narrative Note: []
--- NOTE | 2018-07-10 11:37 | BH.SGPN.GN ---
Behaviors/Verbalizations/Mental Status: [] Pt eye contact good, casually dressed, motor activity appropriate, speech normal rate and tone, mood euthymic, congruent affect, thoughts linear and intact, no evidence of delusions or hallucinations. Client Response/Progress/Benefit: []Pt active and engaged throughout session AEB many contributions to discussion and listening attentively to others. Pt reported it's important to focus on challenging and reframing thought patterns because he recognizes often times the way he thinks will impact the way he behaves. Pt stated he can talk himself out of trying something new because he doesn't think it's something he can do. Pt shared another strategy to overcome what seems impossible is to utilize healthy support system for encouragement. Pt seemed to benefit from learning different strategies to help him get out of comfort zone and overcome difficult situations. Pt to continue IOP level of care to stabilize mood and prevent decompensation. Narrative Note: []
--- NOTE | 2018-07-12 09:10 | BH.SGPN.GN ---
Behaviors/Verbalizations/Mental Status: []Client alert and oriented, neatly dressed and groomed. Eye contact fair- client appears to have a hard time maintaining eye contact. Motor activity appropriate. Speech within normal limits. Affect full, mood euthymic. Thoughts linear, logical, no signs of delusions or hallucinations. Therapist reviewed client's symptom tracker, no signs of risk AEB client denying suicidal ideation, plan, and intent as of 07/12/18. Client Response/Progress/Benefit: []Client responded well to session, engaged and positive. Client reports he is in a good mood today because I'm taking maco in the misery of others. Client shared he had set a boundary with his family earlier this year and he is glad he did because now they are tearing each other apart and I don't have to worry about it. Client identified numerous positives today including having his daughter last night, doing crafts with her, and then taking her to school this morning. Client shared he felt capable and did not have anxiety at all while with his daughter. Client reports medication is a stressor as client just titrated up and felt fatigued form it. Client stated he is trying to stay positive and remind himself the medication helped before. Client appeared to benefit from reflecting on positives. Client to continue IOP to promote gains and increase mood stability.
--- NOTE | 2018-07-14 09:01 | BH.SGPN.GN ---
Behaviors/Verbalizations/Mental Status: [Client maintained fair eye contact throughout - often times looking around the room rather than making eye contact with those who were speaking. Client was casually dressed, appropriate grooming/hygiene. Motor activity WNL - client slouching forward with head in hands. Client speech was a normal rate and tone, mood euthymic, relieved, affect congruent with mood, thoughts linear and logical, no evidence of delusions or hallucinations. Therapist reviewed client?s symptom tracker to assess for intensity of mental health symptoms and identify risk for suicide. No signs of suicidal ideation, plan, or intent to date.] Client Response/Progress/Benefit: [Client receptive of session, willing to engage and openly discuss with the group. Client reports having had an uncomfortable meeting with someone in which he felt led him to fall back into old habits. Client did not further elaborate. He indicated that he did well to avoid ruminating about the exchange after the fact which is an improvement compared to previously. Client appears to be making progress on his ability to identify and challenge distorted thinking patterns. He benefitted from identifying areas of progress and discussing recent positives despite having a difficult experience on the previous date. CLient discussed looking forward to taking his daughter trick or treating this weekend. Recommended continued IOP to prevent decompensation and further improve treatment goal progress.] Narrative Note: []
--- NOTE | 2018-07-14 10:12 | BH.SGPN.GN ---
Behaviors/Verbalizations/Mental Status: []Client alert and oriented, neatly dressed and groomed- new outfit. Eye contact good. Motor activity appropriate. Speech within normal limits. Affect congruent, mood euthymic. Thoughts linear, logical, no signs of hallucinations or delusions. Client Response/Progress/Benefit: []Client responded well to session, active participant. Client reported some stress is positive, but too much stress can lead to increased depression, anxiety, and physical problems. Client discussed with the group how stress impacts a person emotionally, physically, behaviorally, and cognitively. Client identified current stressors in his stress jar to be housing, career choices, and relationship issues. Client reported his stress jar is not full right now. Client shared he has been able to manage his mental health better since starting IOP due to implementing healthy coping skills and medication management. Client appeared to benefit from identifying current stressors and reflecting on progress. Progress noted as shown by client?s increased mood stability, but he can continue to benefit from challenging negative thoughts and setting boundaries.
--- NOTE | 2018-07-14 11:16 | BH.SGPN.GN ---
Behaviors/Verbalizations/Mental Status: []Client alert and oriented, neatly dressed and groomed. Eye contact good. Motor activity appropriate. Speech within normal limits. Affect brighter, mood euthymic. Thoughts linear, logical, no signs of hallucinations or delusions. Client Response/Progress/Benefit: []Client responded well to session, engaged in activity and discussion. Client participated in the group activity and the group failed in accomplishing the goal. Client stated, ?we didn?t prioritize our time and we got stuck with using only one technique.? Client reported when dealing with stress it can be helpful to try various approaches and focus on one stressor at a time. Client identified managing his emotions to the housing situation as a stressor in client?s control. Client learned about the four A?s of reducing stress. Client set a stress-management goal for the weekend which was to practice acceptance ?that some stressors will never fully go away.? Client appeared to benefit from learning stress management skills and from setting a stress-management goal. Client to continue IOP as client reports improved mood, but he continues to struggle with maintaining boundaries and using assertive communication.
--- NOTE | 2018-07-14 15:27 | BH.MDN ---
Multi-Disciplinary Note - Note 60-min Individual Time Started:: 12:26 Date: 07/14/18 Purpose of session/treatment goals addressed:: Purpose of session was to assess current symptoms and stressors. Other topics included: process positives and negatives from past week, goal setting, and started discussion about connecting pt with follow up care for when complete with [facility]. Eye Contact:: Other - scans room Motor Activity:: Appropriate Appearance:: Neat Speech:: Appropriate Mood:: Euthymic, Anxious Affect:: Congruent Thoughts:: Linear, Logical, No evidence of hallucinations/delusions noted Staff Interventions:: Therapist used open ended questions to elicit pt's current symptoms and stressors. Therapist processed pt's past week, inquiring about positives and stressors. Therapist assisted pt with setting goals for weekend to help with continuous forward progress. Therapist collaborated with pt to identify what he is looking for in regards to follow up care once discharges from [facility] level of care. Therapist provided support by using active listening and validating emotions. Client Response:: Pt reported he has been doing better this week with increased mood stability and more positive days. Pt shared he is planning to go see an apartment this weekend and hopes it will work out because it will reduce his stress immensly if he knows where he is going after closing date on his house next week. 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 Pt shared he doesn't believe there is much opportunity for him with a PhD in History in [place], [place]. 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 Pt stated he believes fear and worry have kept him from contacting his friend about the position. Pt set a goal to reach out to his friend about the job this weekend, this way he will know if he needs to start looking elsewhere for a position. Pt also set goal to go to the apartment for a tour tomorrow. Pt stated he does not feel ready for discharge due to this being the first week he has felt better in a long time. Pt expressed concern about aftercare plans for counseling and psychiatry. Pt reported he will not be returning to his previous counselor due to not having the right connection. Pt also verbally requested IOP program to not share any information about him to his previous counselor. Pt shared he is open to having a new counselor and new psychiatrist. Risks/Concerns:: Pt denies suicidal ideation, plan or intention to date. Future focused AEB looking for housing and planning for a new career. Progress Toward Goals/Plan:: Pt demonstrating progress with increased mood stability AEB pt reporting more positive days and emotional stability. Pt progressing with increased confidence AEB pt reporting increased ability to set boundaries because identifies need/importance of taking care of him. Pt continuing to work on identifying and challenging distorted and negative thought patterns. Pt experiencing increased anxiety due to concern about transitioning to a new place, after his move won't see his daughter daily, and unsure of his next career move. Pt to continue IOP level of care to maintain gains, decrease anxiety, and prevent decompensation. Time Stopped:: 13:25
--- NOTE | 2018-07-14 15:43 | BH.MDN_ITS ---
Multi-Disciplinary Note - Note 60-min Individual Time Started:: 12:26 Date: 07/14/18 Purpose of session/treatment goals addressed:: Purpose of session was to assess current symptoms and stressors. Other topics included: process positives and negatives from past week, goal setting, and started discussion about connecting pt with follow up care for when complete with [facility]. Eye Contact:: Other - scans room Motor Activity:: Appropriate Appearance:: Neat Speech:: Appropriate Mood:: Euthymic, Anxious Affect:: Congruent Thoughts:: Linear, Logical, No evidence of hallucinations/delusions noted Staff Interventions:: Therapist used open ended questions to elicit pt's current symptoms and stressors. Therapist processed pt's past week, inquiring about positives and stressors. Therapist assisted pt with setting goals for weekend to help with continuous forward progress. Therapist collaborated with pt to identify what he is looking for in regards to follow up care once discharges from [facility] level of care. Therapist provided support by using active listening and validating emotions. Client Response:: Pt reported he has been doing better this week with increased mood stability and more positive days. Pt shared he is planning to go see an apartment this weekend and hopes it will work out because it will reduce his stress immensly if he knows where he is going after closing date on his house next week. 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 Pt stated he believes fear and worry have kept him from contacting his friend about the position. Pt set a goal to reach out to his friend about the job this weekend, this way he will know if he needs to start looking elsewhere for a position. Pt also set goal to go to the apartment for a tour tomorrow. Pt stated he does not feel ready for discharge due to this being the first week he has felt better in a long time. Pt expressed concern about aftercare plans for counseling and psychiatry. Pt reported he will not be returning to his previous counselor due to not having the right connection. Pt also verbally requested IOP program to not share any information about him to his previous counselor. Pt shared he is open to having a new counselor and new psychiatrist. Risks/Concerns:: Pt denies suicidal ideation, plan or intention to date. Future focused AEB looking for housing and planning for a new career. Progress Toward Goals/Plan:: Pt demonstrating progress with increased mood stability AEB pt reporting more positive days and emotional stability. Pt pro gressing with increased confidence AEB pt reporting increased ability to set boundaries because identifies need/importance of taking care of him. Pt continuing to work on identifying and challenging distorted and negative thought patterns. Pt experiencing increased anxiety due to concern about transitioning to a new place, after his move won't see his daughter daily, and unsure of his next career move. Pt to continue IOP level of care to maintain gains, decrease anxiety, and prevent decompensation. Time Stopped:: 13:25
--- NOTE | 2018-07-17 09:05 | BH.SGPN.GN ---
Behaviors/Verbalizations/Mental Status: []Client alert and oriented, neatly dressed and groomed. Eye contact avoidant at times. Motor activity appropriate. Speech within normal limits-inappropriate remarks at times. Affect constricted, mood irritable. Thoughts linear, logical, no signs of hallucinations or delusions. Reviewed client?s symptom tracker, no risk for suicidal ideation, plan, or intent as of 07/17/18. Client Response/Progress/Benefit: []Client responded well to session, quiet at first, but then engaged. Client reports feeling ?irritated? at his ex- today as per client?s report she is ?trying to sink her teeth in and control me again.? Client?s positives from the weekend were spending time with his daughter and going trick or treating, looking at a nice apartment, and closing on his old house. Client?s stressor is dealing with his , but client was able to identify strategies to improve his mood such as remember the progress he has made and challenging negative thoughts. Client appeared to benefit from connecting with peers. Progress noted as shown by client?s report of generalizing coping skills to increase symptom management. Client to continue IOP as he continues to struggle with cognitive distortions and maintaining boundaries.
--- NOTE | 2018-07-19 09:10 | BH.SGPN.GN ---
Behaviors/Verbalizations/Mental Status: [] Eye contact is good. Motor activity is appropriate. Appearance is casual. Speech is Appropriate. Mood is euthymic. Affect is congruent. Thoughts are linear and logical. No evidence of psychosis. Reviewed daily check in sheet and no reports of suicidal ideations or intent. Client Response/Progress/Benefit: [] Pt was an active participant in group discussion. Provided appropriate feedback. Reports several positives in his life and recovery. States that he officially got his apartment which he reports is a huge step forward for him. He is excited and states that before starting the program he could never had followed through with these simple tasks. States that she is ruminating less and feels more in control of his mood citing examples of not getting angry or utilizing cognitive distortions during recent triggering events. Benefited from group praise. Will continue in IOP to maintain gains. Narrative Note: []
--- NOTE | 2018-09-17 20:57 | BH.MTP_ITS ---
Treatment Plan Review Date of Admission:: 06/06/18 Date of Treatment Plan Review:: 07/10/18 Admitting Diagnoses:: Major depressive disorder rule out bipolar disorder- although patient is unable to provide history of a discrete episode of curtis in the past he has multiple symptoms suggestive of mood cycling. Anxiety. Rule out PTSD. Parasomnia-sleep walking/sleep paralysis Current Diagnoses:: Major depressive disorder rule out bipolar disorder-although patient is unable to provide history of a discrete episode of curtis in the past he has multiple symptoms suggestive of mood cycling. Anxiety. Rule out PTSD. Parasomnia-sleep walking/sleep paralysis Patient's Response to Treatment:: Pt has been an active participant for both individual and group therapy. Pt often is actively engaged during group AEB many contributions to discussion, sharing thoughts and ideas, and participating in group activities. Pt completed homework for group and individual sessions at times, more often than not. Pt consistently has been attending IOP sessions. Pt medication compliant per self-report. Status of Current Problems and Symptoms: Pt demonstrating progress with reporting decrease in both depressive and anxious symptoms. Pt has increased self-awareness of his anxious and depressive thought patterns with improved ability to challenge and reframe unhealthy thoughts. Pt has made efforts to be more active physically by taking walks and engaging in play with his daughter. Pt showing increased independence AEB pt contacting apartment places to schedule visits, which pt reported in the past is something he could not do because he would have his ex- do those tasks. Pt continuing to struggle with self-esteem/self-confidence issues which seems to impact his ability to set boundaries at times with his ex-. Pt's lack of confidence at times increases his depressive thinking because he doesn't think he can find another romantic partner. Pt overall improvement with decreased intensity and frequency of depressive and anxious symptoms. Pt denies SI, plan or intent. Pt reports continuing to use food as a way of coping. Pt denies panic attacks. Team recommends pt continue IOP level of care to maintain gains, increase self- confidence, reinforce healthy coping, and prevent decompensation. Continued care would also be helpful for supportive and maintainence of progress during stressful event of pt moving out on his own, which is the first time pt has been on his own in over 5 years. Problem #1 Problem Name:: decrease depression, feeling of worthlessness, and suicidal ideation Status of Goals:: Objective 1 - pt has made progress on this objective. Pt is able to identify at least 3 depressive thought patterns, but struggles with consistently challenging and reframing unhealthy thought patterns. Pt has improved awareness of how his thoughts exasperate his depressed symptoms. Objective 2 - pt has made progress AEB self-report scores on DSM 5 cross cutting measure. At intake pt scored a 8 out of 8 on depressive subscale with 8 being severe and at review pt scored a 2 out of 8, which indicates signficiant reduction in depressed symptoms. Pt functioning showing improvement, however pt does report unsure if he would be able to perform his job duties at this time if he wasn't on FMLA. Team Recommendations:: Team recommends pt continue current IOP goals to maintain gains, reinforce healthy skills, and prevent decompensation. Problem #2 Problem Name:: Reduce overall frequency, intensity, and duration of the anxiety Status of Goals:: Objective 1 - Pt making moderate progress on objective AEB by pt being able to identify at least 2 healthy coping skills and has applied skills with success in managing his anxious symptoms. However, pt does struggle with consistently applying skills. Objective 2 - Pt making moderate progress on objective AEB pt's self-report scores on DSM 5 cross-cutting measure. At intake pt scored a 8 out of 12 on anxiety subscale with 12 being severe and at review pt scored a 2 out of 12, which indicates a significant reduction in anxious symptoms. In regards to pt's functioning pt reports feeling better able to manage his anxious symptoms. However pt does note he will fall into ruminations about various topics including what to do about work, ex-, daughter, and moving out to be on his own. Team Recommendations:: Team recommends pt continue current IOP goals to maintain gains, reinforce healthy skills, and prevent decompensation.
== END 2018-07-19 23:59 ==
LOC: BHIOP 09:00
PROVIDERS: Visit Provider Psychiatry & Neurology Psychiatry
DX: F32.9 Major depressive disorder, single episode, unspecified (principal); F41.9 Anxiety disorder, unspecified; G47.59 Other parasomnia
CPT/HCPCS: H0035; 90834; 90837; 90853

== ENCOUNTER 2018-07-21 09:00 | Outpatient (RCR) | payer OTHER, SELFPAY ==
--- NOTE | 2018-07-21 09:05 | BH.SGPN.GN ---
Behaviors/Verbalizations/Mental Status: [] Eye contact is good. Motor activity is appropriate. Appearance is neat. Speech is Appropriate. Mood is depression/irritable. Affect is flat. Thoughts are linear and logical. No evidence of psychosis. Reviewed daily check in sheet and no reports of suicidal ideations or intent. Client Response/Progress/Benefit: [] Pt did not speak until prompted. Did not provided feedback to peers. Emotion for today is irritable. Shared that he was irritable today and yesterday and states trigger was completing ADHD testing yesterday. Talked about the testing and frustrations. Also shared that he began to ruminate on the heritary ascpects of ADHD and Bipolar in regards to his daughter. Group was able to challenge and reframe negative thoughts. Also reports anger towards what he views as regression in symptoms and mood management. Benefited from group support and feedback. Regress noted per pt reports. Will continue in IOP to stabilize mood and improve daily functioning. Narrative Note: []
--- NOTE | 2018-07-21 10:10 | BH.SGPN.GN ---
Behaviors/Verbalizations/Mental Status: [] Pt eye contact fair, casually dressed, motor activity appropriate, speech normal rate and tone, mood anxious, congruent affect, thoughts linear and intact, no evidence of delusions or hallucinations. Client Response/Progress/Benefit: []Pt listened attentively to others and contributed thoughts and feelings throughout group. When processing the quote pt reported in the past it would have been difficult for him to believe that failing could lead to the next success, however pt noted he now is able to see that he can learn from his failures. Pt connected the concepts of having growth mindset vs fixed mindset, in which someone with growth mindset will learn from failure and someone with a fixed mindset will be devastated by failure. Noted how it's more helpful to have growth mindset because likely will stay stuck and not try anything new with a fixed mindset. Pt seemed to benefit from increased awareness of impact fear of failing can have on mental health. Narrative Note: []
--- NOTE | 2018-07-21 11:10 | BH.SGPN.GN ---
Behaviors/Verbalizations/Mental Status: [] Pt eye contact fair, casually dressed, motor activity appropriate, speech normal rate and tone, mood anxious, congruent affect, thoughts linear and intact, no evidence of delusions or hallucinations. Client Response/Progress/Benefit: []Pt active participant AEB pt listening attentively to others and contributing to discussion. Pt reported he wants to change his definition of failure to be an opportunity to learn, grown and develop. Pt reported fear has impacted him by not trying new things and not taking risks. Pt reported fear of failure is currently holding him back from: seeking new relationships and embracing/accepting change. Pt reported he can do the following to help him overcome fear of failure: changing his perspective and learning to see failure as an opportunity to grow. Pt seemed to benefit from increased awareness of how fear has impacted him and learning different strategies that can help him overcome fear. Pt to continue IOP level of care to stabilize moods, increase use of healthy skills, and prevent decompensation. Narrative Note: []
--- NOTE | 2018-07-21 15:23 | BH.MDN ---
Multi-Disciplinary Note - Note 45-min Individual Time Started:: 12:15 Date: 07/21/18 Purpose of session/treatment goals addressed:: Purpose of session was to assess current symptoms and stressors. Other topics: challenging distorted thoughts and discussing aftercare options. Eye Contact:: Other - scans room Motor Activity:: Restless Appearance:: Casual Speech:: Rambling Mood:: Anxious Affect:: Congruent Thoughts:: Circular, No evidence of hallucinations/delusions noted Staff Interventions:: Therapist used open ended questions to elicit pt's current symptoms and stressors. Therapist assisted pt with challenging distorted thoughts throughout session. Therapist processed pt's anxieties about upcoming test results in regards to potential ADHD diagnosis. Therapist provided pt with handout listing several psychiatry and counseling options in the area. Homework provided for pt to call and schedule appointments for both counseling and psychiatry. Client Response:: Pt reported he is feeling really anxious because he has his second appointment for ADHD testing in which he had to answer a multitude of questions. Pt shared he later found out one of the tests was an IQ test and pt stated I didn't put my full effort into it and now the results might show I'm stupid. Pt expressed many thoughts about his IQ coming back as normal and how that result would be detrimental for him. Pt struggled with reframing the distorted thought patterns, needed assistance from therapist. Pt fixated on the potential results of the IQ results throughout session. Pt did agree he would like to set up outpatient counseling and psychiatry once he discharges from [facility]. Pt agreeable to call and schedule appointments for both. Risks/Concerns:: Pt denies suicidal ideation, plan or intention to date. Progress Toward Goals/Plan:: Pt appears to struggle with identifying and reframing anxious thought patterns when his emotions are heightened. Pt needed lots of assistance throughout session with reframing his distorted thought patterns. Pt showing progress with being able to identify unhealthy thought patterns when in a calm state, however struggles to challenge thoughts when emotions are heightened. Pt to continue IOP level of care to establish aftercare, increase emotional regulation, and prevent decompensation. Time Stopped:: 13:00
--- NOTE | 2018-07-25 09:07 | BH.SGPN.GN ---
Behaviors/Verbalizations/Mental Status: [] Eye contact is good. Motor activity is appropriate. Appearance is neat. Speech is Appropriate. Mood is anxious. Affect is congruent. Thoughts are linear and logical. No evidence of psychosis. Reviewed daily check in sheet and no reports of suicidal ideations or intent. Client Response/Progress/Benefit: [] Pt was an active participant in group discussion on gas lighting which is when an individual manipulates someone by psychological means to questions their sanity. Emotion for today is motivated. Shared that his mood has been stable this week and he has been productive. Shared that he moved into his new apartment yesterday and slept well. Filled out paperwork online to get appt with new psychiatrist. He discussed the progress that he has made in managing his emotions and feels that the medication changes have been beneficial. Shared with the group his mental breakdowns prior to starting IOP which led to inability to manage relationships and function at work. Progress noted per pt report. Benefited from group support and feedback. Related a great deal to discussion on gas lighting and how it has impacted his mental wellness. Will continue in IOP to maintain gains. Narrative Note: []
--- NOTE | 2018-07-25 10:10 | BH.SGPN.GN ---
Behaviors/Verbalizations/Mental Status: []Eye contact is good. Motor activity is appropriate. Appearance is casual. Speech is Appropriate. Mood is anxious. Affect is congruent. Thoughts are linear and logical. No evidence of psychosis. Client Response/Progress/Benefit: []Pt active participant as evidenced by pt contributing to discussion and engaging in group activity. Pt connected with the quote that we can create problems that aren't there just by the way we think. Pt stated he can think of many situations in which he either created a problem with his thinking alone or made a situation worse because of his anxious thoughts which impacted his behavior. Pt agreed with peers problem solving requires ability and willingness to do something different and challenge distorted thought patterns. When processing activity pt noted importance of being willing to use trial and error to figure out the best solution. Pt seemed to benefit from increased awareness of a problem solving method. Narrative Note: []
--- NOTE | 2018-07-25 11:20 | BH.SGPN.GN ---
Behaviors/Verbalizations/Mental Status: []Eye contact is good. Motor activity is appropriate. Appearance is casual. Speech is Appropriate. Mood is anxious. Affect is congruent. Thoughts are linear and logical. No evidence of psychosis. Client Response/Progress/Benefit: []Pt listened attentively to others and contributed to discussion. 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 Pt identified steps can take to reach solution of decreased addiction to peanut butter bars to include: reaching cause of addiction, journal thoughts that increase cravings, and identify alternative activity to replace constantly eating the bars. Pt reported he believed the steps he identified to decrease eating peanut bars in excess are manageable.Pt seemed to benefit from identifying ways to overcome one of his identified problems. Pt to continue IOP level of care to maintain gains, decrease unhealthy coping and prevent decompensation. Narrative Note: []
--- NOTE | 2018-07-25 13:21 | BH.MDN_ITS ---
Multi-Disciplinary Note - Note 45-min Individual Time Started:: 12:17 Date: 07/25/18 Purpose of session/treatment goals addressed:: Purpose of session was to assess pt's current symptoms and stressors. Other topics included: progress review, aftercare planning, and increasing social support. Eye Contact:: Other - scans Motor Activity:: Appropriate Appearance:: Casual Speech:: Appropriate Mood:: Euthymic Affect:: Congruent Thoughts:: Linear, Logical, No evidence of hallucinations/delusions noted Staff Interventions:: Therapist used open ended questions to elicit pt's current symptoms and stressors. Therapist reviewed pt's homework from last session. Therapist challenged pt to reframe distorted thoughts during session. Therapist discussed aftercare plans for follow up care. Therapist problem solved various activities pt could engage in to increase social connections. Provided homework to reach out to his friend about a possible job in [place]. Client Response:: Pt reported he is no longer upset about the ADHD testing he completed last week, able to challenge the distorted thought patterns and move on. Pt shared he had a good weekend by spending time with his child. Pt reported he is feeling anxious about officially moving out of his home into his apartment on because he will no longer see his daughter everyday. Pt expressed conern about messing my daughter up by getting the divorce. Through reframe pt able to recognize if he stayed with his ex- the situation would have been toxic for his daughter to witness. Pt reported he did follow through with his goal of calling the potential new psychiatrist to get established with outpatient care. Pt shared he did not call a counselor to establish because of his previous counseling experience not being positive and potentially not having insurance come September. Pt willing to think about the pros and cons about going to counseling after discharge. Pt reported he wants to increase his social network, but unsure of where to start. Pt hesitant about finding a social event through [employer] website, but recognizes if he doesn't put himself out there he will not meet anyone. Pt agreeable to reach out to his friend in [place] about the potential job opportunity. Risks/Concerns:: Pt denies suicidal ideation, plan, or intention to date. Progress Toward Goals/Plan:: Pt demonstrating progress with reporting improved mood stability, ability to reframe unhelpful thoughts on a more consistent basis, and following through with some of the goals established from previous sessions. Pt reporting increased anxiety with moving from his home to an apartment on and the transition of not seeing his daughter daily. Pt able to recognize progress with following thorugh with getting a apartment and setting up utilities on his own. Concern is pt reverting back to isolative behaviors when in apartment on his own. Focus will be on increase social network and connections. To continue IOP level of care to maintain gains, increase utilization of health skills, and prevent decompensation. Time Stopped:: 12:57
--- NOTE | 2018-07-28 09:10 | BH.SGPN.GN ---
Behaviors/Verbalizations/Mental Status: [] Eye contact is good. Motor activity is appropriate. Appearance is casual. Speech is Appropriate. Mood is euthymic. Affect is full. Thoughts are linear and logical. No evidence of psychosis. Reviewed daily check in sheet and no reports of suicidal ideations or intent Client Response/Progress/Benefit: [] Pt was an active participant in group discussion. Provided appropriate feedback to peers. Emotion for today is motivated. States that he is completely moved into her apartment. Shared some good decisions that he has made recently stating that he he feels he is accomplishing tasks rather than avoiding or isolation from responsibilities. Also feels that he is managing his emotions more efficiently. Reports being future-oriented, confident, and optimistic which he has not been in several months. Progress noted per pt report. Benefited from group encouragement and praise. Will continue in IOP to maintain gains and transition to work. Narrative Note: []
--- NOTE | 2018-07-28 10:10 | BH.SGPN.GN ---
Behaviors/Verbalizations/Mental Status: []Client alert and oriented, neatly dressed and groomed. Eye contact good. Motor activity appropriate. Speech within normal limits. Affect congruent, mood euthymic. Thoughts linear, logical, no signs of hallucinations or delusions. Client Response/Progress/Benefit: []Client responded well to session, providing positive input. Client appeared to connect with the topic of conflict, sharing a personal example of a time assumptions led to conflict. Client reported conflict is uncomfortable, but ?with the right tools it can be managed.? Client stated if a person avoids conflict ?little problems will become big problems.? Client helped the group discuss the different types of conflict resolutions styles. Client reported he tends to use the accommodating type, but he is trying to get better at communicating his opinions. Client appeared to benefit from learning how the different conflict styles impact mental health and relationships. Client to continue IOP to promote gains and increase consistency of coping skill application.
--- NOTE | 2018-07-28 11:12 | BH.SGPN.GN ---
Behaviors/Verbalizations/Mental Status: [Client receptive of session, maintained good eye contact, consistent input provided. Appearance casual, appropriate grooming/hygiene. Motor activity WNL. Client speech a normal rate and tone, mood euthymic, reflective. Affect congruent with mood, bright. Client thoughts remained linear and logical, no evidence of delusions or hallucinations] Client Response/Progress/Benefit: [Client receptive of session, actively engaged in activity and discussion portions of group. Did well to provide insight to the group related to factors impacting effective conflict resolution as well as strategies for improving ability to manage conflict. Client benefitted from reflecting upon how improving mental health sx management and insight levels has in turn changed his approach to conflict. Reports using more assertive rather than accommodating or avoidant approaches since beginning IOP Client progressing in ability to use effective communication to implement and maintain healthy boundaries. Recommended continued IOP tx to improve consistency of skill application.] Narrative Note: []
--- NOTE | 2018-08-02 09:00 | BH.SGPN.GN ---
Behaviors/Verbalizations/Mental Status: []Client alert and oriented, neatly dressed and groomed. Eye contact fair. Motor activity appropriate. Speech within normal limits, but using self-depreciating language at times. Affect congruent, mood euthymic, anxious. Thoughts linear, logical, no signs of hallucinations or delusions. Reviewed client?s symptom tracker, no risk for suicidal ideation, plan, or intent as of 08/02/18. Client Response/Progress/Benefit: []Client responded well to session, engaging with peers. Client reports feeling ?overall positive? today. Client?s positives included meeting with his new outpatient provider yesterday for medication management. Client plans to attend the DBT group offered through his new provider after discharging IOP to continue making gains. Client?s ongoing stressor is having his daughter ?fulltime? while client?s ex?s finishing remodeling her new home. Client stated ?it?s a delight to have her, but it?s a lot.? Client reported having a panic attack over the weekend which, per client?s report, was triggered by numerous psychosocial stressors. Client shared ?I saw the stressors coming, but I couldn?t avoid them.? Client recognized he managed the panic attack well as he has been able to return to baseline. Client appeared to benefit from connecting with peers. Progress noted as shown by client?s increased assertive communication and generalization of healthy coping skills. Client continues to use self-depreciating language at times. Client recommended to continue IOP to promote gains and increase consistent application of healthy coping skills.
--- NOTE | 2018-08-02 10:15 | BH.SGPN.GN ---
Behaviors/Verbalizations/Mental Status: [] Pt eye contact good, casually dressed, motor activity appropriate, speech normal rate and tone, mood euthymic, congruent affect, thoughts linear and intact, no evidence of delusions or hallucinations. Client Response/Progress/Benefit: [] Client active participant as of evidenced by contributions during group discussion and attentive to others. Client noted that since starting the IOP program he has been working on understanding his triggers and warning signs which is a significant change for him. Client shared to taking him some time to gain that awareness and recognizes he still has improvement to make with this change. Client identified fear to be one thing that can hold him back from making a desired or needed change. Client able to connect with the various emotions discussed and how the emotions can impact ones change process. Client seemed to benefit from increased awareness of the change process and impact emotions can have on making change. Narrative Note: []
--- NOTE | 2018-08-02 11:25 | BH.SGPN.GN ---
Behaviors/Verbalizations/Mental Status: [] Pt eye contact good, casually dressed, motor activity appropriate, speech normal rate and tone, mood euthymic, congruent affect, thoughts linear and intact, no evidence of delusions or hallucinations. Client Response/Progress/Benefit: [] Pt contributed to discussion, listened to others and cooperative with peers. When processing activity pt able to connect how being optimistic, focusing on progress, and learning from past mistakes as strategies that can be helpful when adapting or making personal changes. Pt seemed to benefit from learning about decisional balance tool and other identified strategies to help with managing or making personal changes. Pt to continue IOP level of care to maintain gains and prevent decompensation. Narrative Note: []
--- NOTE | 2018-08-02 13:50 | BH.MDN ---
Multi-Disciplinary Note - Note 45-min Individual Time Started:: 12:27 Date: 08/02/18 Purpose of session/treatment goals addressed:: Purpose of session was to assess current symptoms and stressors. Other topics: processed recent panic attack, identified progress, and discussed tentative discharge. Eye Contact:: Fair, Other - scans Motor Activity:: Appropriate Appearance:: Casual Speech:: Appropriate Mood:: Anxious Affect:: Congruent Thoughts:: Linear, Logical, No evidence of hallucinations/delusions noted Staff Interventions:: Therapist used open ended questions to elicit pt's current symptoms and stressors. Therapist processed recent panic attack, assisting pt with identifying triggers. Therapist elicited pt's current thoughts about treatment progress. Therapist provided education about guided meditation and resources to help pt utilize skill to help decrease anxiety. Therapist collaborated with pt to discuss tentative discharge date. Therapist provided support by active listening and providing feedback. Client Response:: Pt reported on Tuesday he had a panic attack which pt identified trigger to be conversation with his ex-. With assistance from therapist pt able to also recognize he has been going through many changes in his life recently that have increased his anxious symptoms. Pt struggled initially wih identifying progress given his recent panic attack. 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 Pt reported in the past he struggled with following through with tasks and now has improved ability to complete tasks. Pt reported he followed through with his appointment for a new psychiatrist and plans to do individual and group therapy at the same agency. Pt reported currently struggling with binge eating, recent nightmares since panic attack, and increased anxiety. Pt shared his depressive symptoms have decreased. Pt reported he believes he will be ready for discharge from [facility] next week. Pt stated would like to focus on decreasing anxiety. Pt open to trying guided meditation to help decrease anxiety and help him fall back asleep when nightmares wake him up. Risks/Concerns:: Pt denies suicidal/homicial ideation, plan or intention to date. Pt future focused. Progress Toward Goals/Plan:: Pt progressing with reporting decreased depressed symptoms, following through with goals, increased daily productivity, and improved mood stability. Pt has increased awareness of his anxious thought patterns and improved ability to challenge and reframe unhelpful thought patterns. Pt had recent panic attack, struggling with increased anxiety, and nightmares that are disrupting sleep. Pt to continue IOP level of care to maintain gains, decrease anxiety, and prevent decompensation. Time Stopped:: 13:10
--- NOTE | 2018-08-03 10:06 | PCM.PN.BLA ---
Progress Note Patient is seen in follow-up for major depressive disorder rule out bipolar disorder, anxiety, PTSD. History has been obtained per interview with patient, discussion with staff, review of chart. Case discussed with treatment team. Chief complaint-mood symptoms-mood cycling Interim history Patient reports overall he feels that his mood is improving. Each day a little better. He reports decreased depression. He does however report over the past few days some symptoms possibly consistent with mild hypomania. He reports he was telling increased jokes with inappropriate humor. He felt hypersexual and impulsively spent money. His sleep is been mildly disrupted. He is going to bed at 11 PM and getting up at 7 AM. His sleep has been interrupted the past few days. He has increased ruminative anxiety. He had a panic attack on Tuesday while dealing with his ex-'s family which he recognizes as a trigger. No suicidal or homicidal ideation. No symptoms consistent with psychosis. Appetite is normal. Denies nausea vomiting or diarrhea. Consuming 2 cups of coffee daily. Denies ingestion of alcohol. Mental status exam Alert and oriented . No acute distress. Ambulatory with normal gait and station. Appears stated age. Casually dressed and groomed. Appropriate hygiene. Cooperative with interview. Good eye contact. No psychomotor agitation or retardation. Mood euthymic. Affect congruent. Speech is clear and with regular rate and rhythm. Language fluent. Thought process organized. Associations logical. Thought content significant for ruminative anxiety. No suicidal or homicidal ideation related or detected. No symptoms consistent with psychosis noted or detected. Immediate recent and remote memory grossly intact. Attention and concentration are fair. Estimated intelligence and fund of knowledge average. Judgment and insight good. Lab work has been requested from primary care physician. Further lab work will be obtained as needed. Diagnosis Major depressive disorder-possible bipolar 2 disorder. Although patient is unable to provide a history of a discrete episode of curtis in the past he has multiple symptoms suggestive of mood cycling. Anxiety Rule out PTSD Parasomnia-sleep walking/sleep paralysis Plan Continue IOP. Structured setting is necessary to maintain gains and prevent decompensation. Risk-benefit alternative of medications discussed with patient. Patient acknowledges understanding. Increase Lamictal to 200 mg daily. Patient has been compliant with 150 mg daily for more than 2 weeks. Prescription provided for Lamictal 200 mg p.o. daily. Dispense #30. 1 refill. Recommend Vistaril 25-50 mg p.o. nightly as needed insomnia. Prescription provided. Dispense #60 with 1 refill. Drug and alcohol abstinence encouraged. Encouraged to follow-up with outpatient psychiatric providers for when IOP complete. 18 minutes of supportive psychotherapy provided. Patient acknowledges understanding and is in agreement with plan. Feels able to maintain safety. Agrees to seek help or emergency care if feeling unsafe to self or others.
--- NOTE | 2018-08-04 09:10 | BH.SGPN.GN ---
Behaviors/Verbalizations/Mental Status: [] Eye contact is good. Motor activity is appropriate. Appearance is casual. Speech is Appropriate. Mood is euthymic. Affect is full. Thoughts are linear and logical. No evidence of psychosis. Reviewed daily check in sheet and no reports of suicidal ideations or intent. Client Response/Progress/Benefit: [] Pt was an active participant in group discussion. Emotion for today is excited. Shared that he is proud of himself for the way in which he is caring for his daughter full-time. Able to manage stress and understands that he does not need to be perfect and mistakes will occur. Pt is challenging and reframing thoughts as well as managing emotions. Progress noted per pt report. Benefited from group support and encouragement. Will continue in IOP to maintain gains. Narrative Note: []
--- NOTE | 2018-08-04 10:12 | BH.SGPN.GN ---
Behaviors/Verbalizations/Mental Status: [] Pt eye contact good, casually dressed, motor activity appropriate, speech normal rate and tone, mood euthymic, congruent affect, thoughts linear and intact, no evidence of delusions or hallucinations. Client Response/Progress/Benefit: []Pt active participant AEB many contributions throughout group session. Listened attentively to others and worked cooperatively with peers during challenge activity. Pt reported he connects with the quote because there have been a lot of changes he has made recently like getting a divorce and moving into an apartment on his own. Pt shared the easier path would have been to stay in the marriage, but recognized if he stayed on that path it would have ended negatively for him. Pt identified toxic relationships and self doubt to be two personal barriers that get in his way from getting off the wrong path in his life. Pt shared in the past he used alcohol and drugs to help cope which kept him on the wrong path for awhile. Pt seemed to benefit from increased awareness of impact personal pitfalls can have on ability to move forward in life. Narrative Note: []
--- NOTE | 2018-08-04 11:20 | BH.SGPN.GN ---
Behaviors/Verbalizations/Mental Status: [] Pt eye contact good, casually dressed, motor activity appropriate, speech normal rate and tone, mood euthymic, congruent affect, thoughts linear and intact, no evidence of delusions or hallucinations. Client Response/Progress/Benefit: [] Client active spent as evidenced by sharing thoughts and feelings throughout group session and listening to others. Client shared being able to clearly communicate your needs, warning signs and triggers to healthy supports can be helpful in overcoming her voiding specific pitfalls. Client reported his own personal pitfalls to include: Avoidance, masochistic behavior, not reaching out for help, people pleasing, and catastrophize. Client reported currently people pleasing to be the most challenging pitfall because he struggles with disagreement with others to avoid conflict. Client recognizes this impacts his self-esteem and confidence. Client shared his goal is to have awareness of when he is disagreement with another person and remind himself that he is his own person and worthy of sharing his thoughts. Patient demonstrating progress as evidenced by increased self-awareness of his unhealthy choices and identify what he can do to improve her situation. Narrative Note: []
--- NOTE | 2018-08-06 14:42 | BH.MDN_ITS ---
Multi-Disciplinary Note - Note 45-min Individual Time Started:: 12:27 Date: 08/02/18 Purpose of session/treatment goals addressed:: Purpose of session was to assess current symptoms and stressors. Other topics: processed recent panic attack, identified progress, and discussed tentative discharge. Eye Contact:: Fair, Other - scans Motor Activity:: Appropriate Appearance:: Casual Speech:: Appropriate Mood:: Anxious Affect:: Congruent Thoughts:: Linear, Logical, No evidence of hallucinations/delusions noted Staff Interventions:: Therapist used open ended questions to elicit pt's current symptoms and stressors. Therapist processed recent panic attack, assisting pt with identifying triggers. Therapist elicited pt's current thoughts about treatment progress. Therapist provided education about guided meditation and resources to help pt utilize skill to help decrease anxiety. Therapist collaborated with pt to discuss tentative discharge date. Therapist provided support by active listening and providing feedback. Client Response:: Pt reported on Tuesday he had a panic attack which pt identified trigger to be conversation with his ex-. With assistance from therapist pt able to also recognize he has been going through many changes in his life recently that have increased his anxious symptoms. Pt struggled initially wih identifying progress given his recent panic attack. 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 Pt reported in the past he struggled with following through with tasks and now has improved ability to complete tasks. Pt reported he followed through with his appointment for a new psychiatrist and plans to do individual and group therapy at the same agency. Pt reported currently struggling with binge eating, recent nightmares since panic attack, and increased anxiety. Pt shared his depressive symptoms have decreased. Pt reported he believes he will be ready for discharge from [facility] next week. Pt stated would like to focus on decreasing anxiety. Pt open to trying guided meditation to help decrease anxiety and help him fall back asleep when nightmares wake him up. Risks/Concerns:: Pt denies suicidal/homicial ideation, plan or intention to date. Pt future focused. Progress Toward Goals/Plan:: Pt progressing with reporting decreased depressed symptoms, following through with goals, increased daily productivity, and improved mood stability. Pt has increased awareness of his anxious thought patterns and improved ability to challenge and reframe unhelpful thought patterns. Pt had recent panic attack, struggling with increased anxiety, and nightmares that are disrupting sleep. Pt to continue IOP level of care to maintain gains, decrease anxiety, and prevent decompensation. Time Stopped:: 13:10
--- NOTE | 2018-08-07 09:05 | BH.SGPN.GN ---
Behaviors/Verbalizations/Mental Status: [] Pt eye contact good, casually dressed, motor activity appropriate, speech normal rate and tone, mood euthymic, congruent affect, thoughts linear and intact, no evidence of delusions or hallucinations. Reviewed client?s symptom tracker, no signs of suicidal ideation, plan, or intent as of today. Client Response/Progress/Benefit: [] Patient reported his positives to include spending time with his daughter all weekend, getting his Internet connected and planning to get a gym membership today. Quite sure that overall he does not have many stressors in his weekend was really relaxing and fun. Client assured and the only stressor he could identify would be experiencing nightmares anytime he titrates up on his medication. Client reported he has been having nightmares the past 4 days and waking up at least 3 or more times a night. Client shared after about 4 days his nightmares tend to stop when he adjusted the medication change. Client reported moods continue to be stable and anxiety has decreased a bit. Client demonstrating progress as evidenced by reporting decreased depression and anxiety as well as planning to increase social support in connection by joining a gym to get out of the house. Plan to continue up of care to maintain gains and prevent decompensation. Narrative Note: []
--- NOTE | 2018-08-07 10:10 | BH.SGPN.GN ---
Behaviors/Verbalizations/Mental Status: [] Eye contact is good. Motor activity is appropriate. Appearance is casual. Speech is Appropriate. Mood is anxious. Affect is congruent. Thoughts are linear and logical. No evidence of psychosis. Client Response/Progress/Benefit: [] Pt was an active participant in group discussion and activity. Provided appropriate feedback to peers. Provided insight into the definition and benefits to social support in mental wellness. Also participated in group discussion on obstacles to seeking support. Did well during activity and was able to connect activity to social supports stating that asking questions, being specific, clarifying perspectives, and clarifying emotions are necessary when seeking support. States some people have different concepts of anxiety and depression so its important to be clear on what is causing you distress to erase confusion. Benefited from psychoeducation. Progress noted as pt was able to identify the role that support plays in recovery and some obstacles to utilizing his support. Will continue in IOP to maintain gains. Narrative Note: []
--- NOTE | 2018-08-07 11:10 | BH.SGPN.GN ---
Behaviors/Verbalizations/Mental Status: [] Eye contact is good. Motor activity is appropriate. Appearance is casual. Speech is Appropriate. Mood is anxious. Affect is flat. Thoughts are linear and logical. No evidence of psychosis. Client Response/Progress/Benefit: [] Pt was attentive during group discussion and completed worksheets. Active participant during discussion on different types of social support such as mental health, spiritual,personal, and professional. Group discussed the importance of support in different settings. Completed worksheet regarding pt's support desired (personal and social support), how this support will help (improve connections, promote healthy lifestyle), and steps to take to get this support (exercise, meeting new people). Progress noted as pt was able to identify the different types of support and strategies to reach out to these supports. Will continue in IOP to maintain gains. Narrative Note: []
--- NOTE | 2018-08-09 09:05 | BH.SGPN.GN ---
Behaviors/Verbalizations/Mental Status: [] Pt eye contact good, casually dressed, motor activity appropriate, speech normal rate and tone, mood euthymic, congruent affect, thoughts linear and intact, no evidence of delusions or hallucinations. Reviewed client?s symptom tracker, no signs of suicidal ideation, plan, or intent as of today. Client Response/Progress/Benefit: []Pt attentive to peers, making supportive comments, and shared thoughts and feelings. Pt reported he joined the local gym and worked out yesterday. Pt shared he is excited to get active and believes being more active will help his mental health and build self-confidence. Pt reported he is feeling more optimistic about life. Pt stated his relationship with his daughter has improved drastically. Pt demonstrating progress as reporting decrease depression and anxious. Pt to continue IOP to maintain gains and prevent decompensation. Narrative Note: []
--- NOTE | 2018-08-09 10:10 | BH.SGPN.GN ---
Behaviors/Verbalizations/Mental Status: [] Eye contact is good. Motor activity is appropriate. Appearance is casual. Speech is Appropriate. Mood is anxious. Affect is congruent. Thoughts are linear and logical. No evidence of psychosis. Client Response/Progress/Benefit: [] Pt was an active participant in group discussion and activity. Worked with the group on defining coping skills as methods or strategies that one uses to manage stressful situations and emotions. Group brainstormed some internal and external coping skills. Along with the group discussed how inappropriate coping skills (isolation) effect us and at times can cause more problems. Also along with other group members discussed the ways in which appropriate coping skills help us manage our emotions and improve wellness. Progress noted as pt was able to identify internal and external coping skills as well as the effect of good and bad coping skills have on our well-being. Will continue in IOP to maintain gains with expected discharge this week. Narrative Note: []
--- NOTE | 2018-08-09 11:12 | BH.SGPN.GN ---
Behaviors/Verbalizations/Mental Status: [Client alert and oriented, casually dressed. Eye contact good. Motor activity appropriate. Speech within normal limits. Affect full, mood euthymic. Thoughts linear, logical, no signs of hallucinations or delusions. ] Client Response/Progress/Benefit: [Client responded well to session, providing ideas for health coping strategies. Client helped the group discuss the different categories of coping skills and the pros and cons of each. Client created a coping skills menu with a coping skill from each category- distraction, grounding, emotional release, self-love, and thought challenge. Client?s menu included: engaging in social activities, singing, listening to music, 5-senses mindfulness activity, and reality checking his thoughts. Client discussed that having a support help challenge thought can be helpful as well as we don?t always recognize when using distorted thoughts patterns. Client appeared to benefit from gaining numerous coping skills and learning the pros and cons of each coping skill category. Client to continue IOP to prevent decompensation and increase consistency of healthy coping skills.] Narrative Note: []
--- NOTE | 2018-08-09 14:04 | BH.MDN ---
Multi-Disciplinary Note - Note 45-min Individual Time Started:: 10:50 Date: 08/09/18 Purpose of session/treatment goals addressed:: Purpose of session was to assess current symptoms and stressors. Other topics include: identifying treatment progress, discussing aftercare plans post discharge from [facility], and continued areas to focus on through outpatient counseling. Eye Contact:: Good Motor Activity:: Appropriate Appearance:: Casual Speech:: Appropriate Mood:: Euthymic Affect:: Congruent Thoughts:: Linear, Logical, No evidence of hallucinations/delusions noted Staff Interventions:: Therapist used open ended questions to elicit pt's current symptoms and stressors. Therapist collaborated with pt to identify treatment progress since starting IOP. Therapist inquired pt's plans for aftercare follow up once discharges from [facility] on Tuesday. Therapist elicited pt's thoughts on what areas he think would be beneficial to focus on with new outpatient therapist. Client Response:: Pt reported he is continuing to feel stable emotionally and continuing to progress forward with his goals. Pt shared he can note lots of progress since entering [facility] level of care. Pt reported the medication has really helped stabilize his moods so he isn't on such extremes with curtis and depression. Pt shared he also notes progress with increased awareness with ability to reframe distorted thought patterns. Pt reported it really helped him to learn about the impact his thoughts were having on him and now has the skills to challenge and reframe unhelpful thoughts. Pt reported his ability to communicate clearly and directly has improved, which increased his confidence level. Pt reported he has a decreased need for external validation. Pt shared prior to [facility] he was on dating websites trying to find someone that could validate him because he struggled with self-validation. Pt shared this is the most mentally stable I've been ever. Pt identified strategies that can help him stay stable to include: continuing the learning process, staying with follow up care, getting out of the house, refer back to [facility] binder, and halt before he makes a decision. Pt shared he has set up appointments for psychiatry, outpatient counseling, and starts DBT group in two weeks. 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 Risks/Concerns:: Pt denies suicidal ideation, plan or intention to date. Progress Toward Goals/Plan:: Pt has progressed with mood stability, decreased depression, decreased anxiety, and overall improved daily functioning. Pt continuing to make progress with recognizing and challenging anxious and depressed thought patterns. Pt making effort to get out of the house and increase socialization. Plan is for pt to discharge from [facility] on Tuesday08/11/18. Time Stopped:: 11:30
--- NOTE | 2018-08-09 15:49 | BH.MDN_ITS ---
Multi-Disciplinary Note - Note 45-min Individual Time Started:: 10:50 Date: 08/09/18 Purpose of session/treatment goals addressed:: Purpose of session was to assess current symptoms and stressors. Other topics include: identifying treatment progress, discussing aftercare plans post discharge from [facility], and continued areas to focus on through outpatient counseling. Eye Contact:: Good Motor Activity:: Appropriate Appearance:: Casual Speech:: Appropriate Mood:: Euthymic Affect:: Congruent Thoughts:: Linear, Logical, No evidence of hallucinations/delusions noted Staff Interventions:: Therapist used open ended questions to elicit pt's current symptoms and stressors. Therapist collaborated with pt to identify treatment progress since starting IOP. Therapist inquired pt's plans for aftercare follow up once discharges from [facility] on Tuesday. Therapist elicited pt's thoughts on what areas he think would be beneficial to focus on with new outpatient therapist. Client Response:: Pt reported he is continuing to feel stable emotionally and continuing to progress forward with his goals. Pt shared he can note lots of progress since entering [facility] level of care. Pt reported the medication has really helped stabilize his moods so he isn't on such extremes with curtis and depression. Pt shared he also notes progress with increased awareness with ability to reframe distorted thought patterns. Pt reported it really helped him to learn about the impact his thoughts were having on him and now has the skills to challenge and reframe unhelpful thoughts. Pt reported his ability to communicate clearly and directly has improved, which increased his confidence level. Pt reported he has a decreased need for external validation. Pt shared prior to [facility] he was on dating websites trying to find someone that could validate him because he struggled with self-validation. Pt shared this is the most mentally stable I've been ever. Pt identified strategies that can help him stay stable to include: continuing the learning process, staying with follow up care, getting out of the house, refer back to [facility] binder, and halt before he makes a decision. Pt shared he has set up appointments for psychiatry, outpatient counseling, and starts DBT group in two weeks. 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 Risks/Concerns:: Pt denies suicidal ideation, plan or intention to date. Progress Toward Goals/Plan:: Pt has progressed with mood stability, decreased depression, decreased anxiety, and overall improved daily functioning. Pt continuing to make progress with recognizing and challenging anxious and depressed thought patterns. Pt making effort to get out of the house and increase socialization. Plan is for pt to discharge from [facility] on Tuesday08/11/18. Time Stopped:: 11:30
--- NOTE | 2018-08-11 09:07 | BH.SGPN.GN ---
Behaviors/Verbalizations/Mental Status: [] Pt eye contact good, casually dressed, motor activity appropriate, speech normal rate and tone, mood euthymic, congruent affect, thoughts linear and intact, no evidence of delusions or hallucinations. Reviewed client?s symptom tracker, no signs of suicidal ideation, plan, or intent as of today. Client Response/Progress/Benefit: []Pt shared thoughts and feelings openly and listened attentively to others. Pt reported he is overall doing well. Pt reported he spent time with his daughter for Thanksgiving and had a good time. Pt shared he is anxious about today being his last day in the program because he is worried he won't be able to maintain the progress he has made since starting IOP. Pt noted the progress he has made since he started IOP. Pt seemed to benefit from reflecting on his progress. Pt to discharge from IOP level of care due to making significant progress on treatment goals. Narrative Note: []
--- NOTE | 2018-08-11 10:15 | BH.SGPN.GN ---
Behaviors/Verbalizations/Mental Status: []Client alert and oriented, casual dress, hygiene good. Eye contact good. Motor activity appropriate. Speech within normal limits. Affect congruent, mood euthymic. Thoughts linear, logical, no signs of hallucinations or delusions. Client Response/Progress/Benefit: []Client responded well to session, positive contributions. Client stated goals are needed for improving mental health and that the ?journey? of reaching goals is more important than the ?final product.? Client reported ?if you are only focused on the end goal you feel empty.? Client helped the group review SMART goals. Client reflected on progress, stating, ?I used to be all or nothing? when it came to setting goals, but now client is more realistic. Client engaged in the activity, often reminding peers to stay calm, communicate, and set attainable goals. Client appeared to benefit from learning about SMART goals and reflecting on progress. Client to discharge from [facility] today as he has made significant progress.
--- NOTE | 2018-08-11 10:26 | BH.AFTERPLAN ---
Aftercare Plan - Demographics Treatment End Date:: 08/11/18 Psychiatrist:: Paulette Chen Psychiatrist Office #:: [phone] [facility] Therapist:: Carmen Perry Therapist Phone #:: [phone] - Medications Home Medications: Home Medications Lamotrigine [Lamictal] 100 mg PO DAILY 07/14/18 - Plan Details Progress/Aftercare Plan Details:: You have made significant progress with mood stabilization, decreased depressive and anxious symptoms. You have improved awareness of distorted thought patterns and able to challenge or reframe unhelpful thoughts. You are starting to get yourself out of the house and engage in activities that will help you increase social network and decrease isolative behaviors. Progress shown with consistently using healthy coping skills. Strategies for Success:: 1. Continue the learning process of new skills, strategies, and insight to help you maintain gains and continue to move forward. 2. It is zhu to maintain follow up care to help reinforce what you have already learned and gain more skills. 3. Continue to get out of the house; isolation reinforces depressive and anxious symptoms. 4. Continue to look for and attend activities that give you an opportunity to meet new people. 5. Continue healthy skills like exercise, mindfulness, taking a break, etc. 6. Boundaries are zhu! Remember you are worth it to set boundaries with others. 7. Communicate, communicate, communicate! Others can't read your mind and you can't read others minds. 8. Be aware of distorted thought patterns and challenge/reframe. 9. Radical acceptance. 10. Reference back to [facility] binder for refresher of skills. - Appointments Appointments/Referrals to Other Services:: 1. Psychiatry appointment on August 15 at [facility]. 2. Counseling appointment next week at [facility]. 3. DBT group starts August 21 at [facility].
--- NOTE | 2018-08-11 10:49 | BH.IGGP_ITS ---
Aftercare Plan - Demographics Treatment End Date:: 08/11/18 Psychiatrist:: Paulette Chen Psychiatrist Office #:: [phone] [facility] Therapist:: Carmen Perry Therapist Phone #:: [phone] - Medications Home Medications: Home Medications Lamotrigine [Lamictal] 100 mg PO DAILY 07/14/18 - Plan Details Progress/Aftercare Plan Details:: You have made significant progress with mood stabilization, decreased depressive and anxious symptoms. You have improved awareness of distorted thought patterns and able to challenge or reframe unhelpful thoughts. You are starting to get yourself out of the house and engage in activities that will help you increase social network and decrease isolative behaviors. Progress shown with consistently using healthy coping skills. Strategies for Success:: 1. Continue the learning process of new skills, strategies, and insight to help you maintain gains and continue to move forward. 2. It is zhu to maintain follow up care to help reinforce what you have already learned and gain more skills. 3. Continue to get out of the house; isolation reinforces depressive and anxious symptoms. 4. Continue to look for and attend activities that give you an opportunity to meet new people. 5. Continue healthy skills like exercise, mindfulness, taking a break, etc. 6. Boundaries are zhu! Remember you are worth it to set boundaries with others. 7. Communicate, communicate, communicate! Others can't read your mind and you can't read others minds. 8. Be aware of distorted thought patterns and challenge/reframe. 9. Radical acceptance. 10. Reference back to [facility] binder for refresher of skills. - Appointments Appointments/Referrals to Other Services:: 1. Psychiatry appointment on August 15 at [facility]. 2. Counseling appointment next week at [facility]. 3. DBT group starts August 21 at [facility].
--- NOTE | 2018-08-11 11:15 | BH.SGPN.GN ---
Behaviors/Verbalizations/Mental Status: []Client alert and oriented, casually dressed, hygiene good. Eye contact good. Motor activity appropriate. Speech within normal limits. Affect full-smiling and laughing, mood euthymic. Thoughts linear, logical, no signs of hallucinations or delusions. Client Response/Progress/Benefit: []Client responded well to session, providing positive strategies to overcome barriers. Client established a SMART goal to help client improve self-esteem and reduce rumination on the past. Client?s goal was to use his DBT skills workout and radical acceptance three times a week to help client challenge cognitive distortions. Client identified his barriers as expecting fast results, feeling tired, and lacking emotional control. Client able to develop strategies to overcome barriers including: journaling his emotions, remembering ?it?s a marathon not a sprint,? and to work on his goal on days he does not have his daughter. Client shared ?if you actually apply the skills, you?ll make changes.? Client appeared to benefit from setting a SMART goal to improve his mental health and self-esteem. Client to discharge from [facility] as he has made significant progress.
--- NOTE | 2018-08-11 16:41 | BH.DS ---
Discharge Summary - Demographics Date of Admission:: 06/07/18 Discharge Date: 08/11/18 Presenting Problems at Admission:: Patient referred by PCP to the behavioral health IOP for evaluation and treatment of mood symptoms and anxiety. Pt stated his symptoms have been long-standing and have been interfering with occupational function. 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 Pt reported a long-standing hx of irritability, anger and impulsivity. Pt reported 2 significant episodes of depression this year. A nervous breakdown in November in which he had increased depression, emotional lability, anhedonia and desire to stay in bed. Suicidal thoughts in April with method to via carbon monoxide poisoning. Discharge Diagnoses:: Major depressive disorder-possible bipolar 2 disorder. Although patient is unable to provide a history of a discrete episode of curtis in the past he has multiple symptoms suggestive of mood cycling. Anxiety. Rule out PTSD. Parasomnia-sleep walking/sleep paralysis Reason for Discharge:: Pt has made significant progress on treatment goals and no longer meets medical necessity for [facility] level of care. - Treatment Progress During Treatment & Response: Pt has made significant progress with mood stabilization, decreased depressive and anxious symptoms as evidenced by pt's self-report scores on DSM 5 cross-cutting measure. Pt scored a 8 out of 8, with 8 being severe, on depression subscale and at discharge pt scored a 1 out of 8, which demonstrates a significant reduction in depressed symptoms. Pt scored a 8 out of 12, with 12 being severe, on the anxiety subscale at intake and a 1 out of 12 at discharge, which indicates significant reduction in anxious symptoms. Pt has also shown improvement with improved awareness of distorted thought patterns and able to challenge or reframe unhelpful thoughts. Pt has decreased isolative behaviors by getting out of the house and engaging in activities that increase socialization. Progress shown with consistently using healthy coping skills. Pt has been an active participant during treatment AEB pt often contributing positively to discussions, engaging in activities, and completing homework from both group and individual sessions periodically. Pt initially struggled with generalization of skills learned, but per pt's report he is more active during his days and applying skills on daily basis. Issues Still to be Addressed:: Pt could benefit from continued reinforcement of healthy coping skills and challenging/reframing distorted thought patterns. Pt also could benefit from learning skills that will help pt adjust to new living situations and increase his ability to be independent considering pt has a long hx of relying on his ex- to make difficult decisions for him. Also would be helpful for pt to learn assertiveness skills and build his self-confidence. Discharge Recommendations/Instructions:: 1. Psychiatry appointment on August 15 at [facility]. 2. Counseling appointment next week at [facility]. 3. DBT group starts August 21 at [facility]. Discharge Handout: Complete Discharge Handout with client on aftercare options and continuity of care.
--- NOTE | 2018-08-28 11:42 | BH.DS_ITS ---
Discharge Summary - Demographics Date of Admission:: 06/07/18 Discharge Date: 08/11/18 Presenting Problems at Admission:: Patient referred by PCP to the behavioral health IOP for evaluation and treatment of mood symptoms and anxiety. Pt stated his symptoms have been long-standing and have been interfering with occupational function. 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 Pt reported a long- standing hx of irritability, anger and impulsivity. Pt reported 2 significant episodes of depression this year. A nervous breakdown in November in which he had increased depression, emotional lability, anhedonia and desire to stay in bed. Suicidal thoughts in April with method to via carbon monoxide poi soning. Discharge Diagnoses:: Major depressive disorder-possible bipolar 2 disorder. Although patient is unable to provide a history of a discrete episode of curtis in the past he has multiple symptoms suggestive of mood cycling. Anxiety. Rule out PTSD. Parasomnia-sleep walking/sleep paralysis Reason for Discharge:: Pt has made significant progress on treatment goals and no longer meets medical necessity for [facility] level of care. - Treatment Progress During Treatment & Response: Pt has made significant progress with mood stabilization, decreased depressive and anxious symptoms as evidenced by pt's self-report scores on DSM 5 cross-cutting measure. Pt scored a 8 out of 8, with 8 being severe, on depression subscale and at discharge pt scored a 1 out of 8, which demonstrates a significant reduction in depressed symptoms. Pt scored a 8 out of 12, with 12 being severe, on the anxiety subscale at intake and a 1 out of 12 at discharge, which indicates significant reduction in anxious symptoms. Pt has also shown improvement with improved awareness of distorted thought patterns and able to challenge or reframe unhelpful thoughts. Pt has decreased isolative behaviors by getting out of the house and engaging in activities that increase socialization. Progress shown with consistently using healthy coping skills. Pt has been an active participant during treatment AEB pt often contributing positively to discussions, engaging in activities, and completing homework from both group and individual sessions periodically. Pt initially struggled with generalization of skills learned, but per pt's report he is more active during his days and applying skills on daily basis. Issues Still to be Addressed:: Pt could benefit from continued reinforcement of healthy coping skills and challenging/reframing distorted thought patterns. Pt also could benefit from learning skills that will help pt adjust to new living situations and increase his ability to be independent considering pt has a long hx of relying on his ex- to make difficult decisions for him. Also would be helpful for pt to learn assertiveness skills and build his self-confidence. Discharge Recommendations/Instructions:: 1. Psychiatry appointment on August 15 at [facility]. 2. Counseling appointment next week at [facility]. 3. DBT group starts August 21 at [facility]. Discharge Handout: Complete Discharge Handout with client on aftercare options and continuity of care.
== END 2018-08-11 14:00 | disposition home or self-care (01) ==
LOC: BHIOP 09:00
PROVIDERS: Visit Provider Psychiatry & Neurology Psychiatry
DX: F32.9 Major depressive disorder, single episode, unspecified (principal); F41.9 Anxiety disorder, unspecified; G47.59 Other parasomnia
CPT/HCPCS: H0035; 90832; 90834; 90853

== ENCOUNTER → 2024-02-09 | Outpatient (CLI) | payer MEDICAID, SELFPAY ==
[2024-02-09 11:10] LABS: ALB/GLOB Ratio 0.9 RATIO (0.9-2.4); AST(SGOT) 25 U/L (15-37); Alanine Aminotransfer ALT/SGPT 43 U/L (16-61); Albumin, Serum 3.5 g/dL (3.2-5.0); Alkaline Phosphatase 73 U/L (45-117); Anion Gap 6 (5-15); BUN 10 mg/dL (7-18); BUN/Creat Ratio 9.8 RATIO (10-20); Calcium,Total 8.9 mg/dL (8.5-10.1); Chloride 110 mmol/L (98-107); Cholesterol 202 mg/dL (200); Creatinine, Serum 1.02 mg/dL (0.70-1.30); EST Glomerular Filtration Rate 84 mL/min (>60); Est Glom Filt Rate - Afr Amer 101 mL/min (>60); Globulin 3.9 g/dL (2.2-4.2); Glucose 115 mg/dL (74-106); High Density Lipoprotein 39 mg/dL; Potassium 3.8 mmol/L (3.5-5.1); Protein, Total 7.4 g/dL (6.4-8.2); Sodium Level 140 mmol/L (136-145); Thyroid Stim Hormone (TSH) 2.33 uIU/mL (0.358-3.74); Triglycerides 109 mg/dL; Very Low Density Lipoprotein 22 mg/dL (5-40)
== END | disposition home or self-care (01) ==
PROVIDERS: PCP Internal Medicine; Referring Provider Internal Medicine; Visit Provider Internal Medicine
DX: E66.01 Morbid (severe) obesity due to excess calories (principal); R05.3 Chronic cough; F33.0 Major depressive disorder, recurrent, mild; F41.1 Generalized anxiety disorder
CPT/HCPCS: 36415; 80053; 80061; 84443

== ENCOUNTER 2024-02-15 12:08 | Outpatient (RCR) | payer MEDICAID, SELFPAY | END 2024-02-17 23:59 | disposition home or self-care (01) | LOC: NS 12:08 | PROVIDERS: PCP Internal Medicine; Referring Provider Internal Medicine; Visit Provider Internal Medicine | DX: Z71.3 Dietary counseling and surveillance (principal); E66.01 Morbid (severe) obesity due to excess calories; Z68.42 Body mass index [BMI] 45.0-49.9, adult | CPT/HCPCS: 97802 ==

== ENCOUNTER 2024-03-05 12:09 | Outpatient (RCR) | payer MEDICAID, SELFPAY | END 2024-03-18 23:59 | LOC: NS 12:09 | PROVIDERS: PCP Internal Medicine; Referring Provider Internal Medicine; Visit Provider Internal Medicine | DX: Z71.3 Dietary counseling and surveillance (principal); E66.9 Obesity, unspecified; Z68.42 Body mass index [BMI] 45.0-49.9, adult | CPT/HCPCS: 97803 ==

== ENCOUNTER → 2024-07-18 | Outpatient (CLI) | payer MEDICAID, SELFPAY ==
--- OUTSIDE RECORDS SUMMARY | 2024-07-18 19:57 | XMS RPT_ITS | CCD ---
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 [place] [address]Nq# [phone] Glucose mass conc 73 mg/dL Normal 70-100 [facility] Comment on above: Result Comment: 70-1 00- Normal Fasting; 100-125 Impaired Fasting; greaterthan 126 on more than one result- Diabetes. ADA guidelines.Results may be falsely elevated after the administration ofSulfapyridine.Results may be falsely depressed after the administration ofSulfasalazine. Performed By: #### L 500.40778, L500.14682 ####[facility] POSZFVADWS5903 [place], [place] [address]Ml# [phone] Potassium molar conc 4.4 mmol/L Normal 3.5-5.1 [facility] Comment on above: Performed By: #### L 500.90795, L500.79443 ####[facility] YFCBKNVKGG7580 [place], [place] [address]Fy# [phone] Sodium 141 mmol/L Normal 136-145 [facility] Comment on above: Performed By: #### L 500.47746, L500.81093 ####[facility] SXDJWZIMND2054 [place], [place] [address]Gl# [phone] Urea nitrogen 18 mg/dL Normal 7-26 [facility] Comment on above: Performed By: #### L 500.65220, L500.57615 ####[facility] GGNTSNUJWR2931 [place], [place] [address]Jp# [phone] GFR ESTon 10-25-2017 IF AMER Greater than 60 Normal [facility] Comment on above: Performed By: #### L 500.43085, L500.02576 ####[facility] SYHFDDEAHE0164 [place], [place] [address]Nu# [phone] IF non-AFR AMER Greater than 60 Normal [facility] Comment on above: Performed By: #### L 500.00442, L500.62802 ####[facility] XHCICRNIEY9147 [place], [place] [address]Jn# [phone] BMPon 09-01-2017 Anion gap 7 mmol/L Normal 5-16 [facility] Comment on above: Performed By: #### L 500.92190, L500.38785 ####[facility] WVSEVEJTVQ1450 [place], [place] [address]Kr# [phone] BUN/Creatinine Ratio 18 mg/mg Normal 15-24 [facility] Comment on above: Performed By: #### L 500.66640, L500.12066 ####[facility] MFULAEXUKI1949 [place], [place] [address]Eo# [phone] Calcium 9.1 mg/dL Normal 8.5-10.1 [facility] Comment on above: Performed By: #### L 500.15189, L500.84272 ####[facility] HEKSTGEVJP3729 [place], [place] [address]Qf# [phone] Chloride 104 mmol/L Normal 98-107 [facility] Comment on above: Performed By: #### L 500.63645, L500.57079 ####[facility] MVRMSRBNDE6478 [place], [place] [address]Wp# [phone] CO2 28 mmol/L Normal 21-32 [facility] Comment on above: Performed By: #### L 500.04301, L500.91656 ####[facility] NHOCQTLZWN0765 [place], [place] [address]Jj# [phone] Creatinine 0.896 mg/dL Normal 0.670-1.170 [facility] Comment on above: Result Comment: Raquel ents receiving either N-Acetylcysteine (NAC) orMetamizole prior to venipuncture, may have falsely depressedresults. Performed By: #### L 500.25910, L500.74678 ####[facility] FXVGLBMIMW8496 [place], [place] [address]Pp# [phone] Glucose mass conc 79 mg/dL Normal 70-100 [facility] Comment on above: Result Comment: 70-1 00- Normal Fasting; 100-125 Impaired Fasting; greaterthan 126 on more than one result- Diabetes. ADA guidelines.Results may be falsely elevated after the administration ofSulfapyridine.Results may be falsely depressed after the administration ofSulfasalazine. Performed By: #### L 500.09355, L500.01399 ####[facility] KPDWTNHOBB7666 [place], [place] [address]Nu# [phone] Potassium molar conc 4.1 mmol/L Normal 3.5-5.1 [facility] Comment on above: Performed By: #### L 500.10958, L500.13172 ####[facility] UGBBUFIYZA[address] [place] [address]Di# [phone] Sodium 139 mmol/L Normal 136-145 [facility] Comment on above: Performed By: #### L 500.53663, L500.83682 ####[facility] LMYIHVBJLP8114 [place], [place] [address]Pi# [phone] Urea nitrogen 16 mg/dL Normal 7-26 [facility] Comment on above: Performed By: #### L 500.33539, L500.90734 ####[facility] LJZVLBFLKZ[address] [place] [address]Tz# [phone] GFR ESTon 09-01-2017 IF AMER Greater than 60 Normal [facility] Comment on above: Performed By: #### L 500.30150, L500.51458 ####[facility] YDHQVKQVEH5242 [place], [place] [address]Tn# [phone] IF non-AFR AMER Greater than 60 Normal [facility] Comment on above: Performed By: #### L 500.65752, L500.06176 ####[facility] WTBRVZPTEW8924 [place], [place] [address]Gz# [phone] CBC W/DIFFon 07-29-2017 BASO ABS 0.00 K/CU MM Normal 0-0.2 [facility] Comment on above: Performed By: #### L 500.18093, L500.26029 ####[address] [address]Jm# [phone] Basophils/100 WBC Auto (Bld) 0.6 % Normal 0-2 [facility] Comment on above: Performed By: #### L 500.03998, L500.98513 ####[address] [address]El# [phone] EOS ABS 0.10 K/CU MM Normal 0-0.5 [facility] Comment on above: Performed By: #### L 500.51016, L500.50470 ####[address] [address]Ec# [phone] Eosinophils/100 leukocytes 2.6 % Normal 0-5 [facility] Comment on above: Performed By: #### L 500.39626, L500.35341 ####[address] [address]Yp# [phone] Erythrocyte distribution width Auto Ratio (RBC) 12.4 % Normal 11-14.5 [facility] Comment on above: Performed By: #### L 500.13897, L500.38825 ####[facility] JPIMRPBAUW[address] [place] [address]Ac# [phone] Erythrocytes (RBC) 5.56 M/CU MM Normal 4.50-6.00 [facility] Comment on above: Performed By: #### L 500.62503, L500.68823 ####[address] [address]Zq# [phone] Erythrocytes (RBC) 0.0 % Normal Less than 1 [facility] Comment on above: Performed By: #### L 500.21024, L500.85547 ####[facility] FYVRYFURFT[address] [place] [address]Nl# [phone] Hematocrit (HCT) 47.8 % Normal 41.0-53.0 [facility] Comment on above: Performed By: #### L 500.72765, L500.43231 ####[place] [address]Ph# [phone] Hemoglobin mass conc (Bld) 16.0 g/dL Normal 13.5-17.5 [facility] Comment on above: Performed By: #### L 500.35625, L500.64249 ####[place] [address]Ph# [phone] IMMATR GRAN ABS 0.00 K/CU MM Normal Less than 2 [facility] Comment on above: Performed By: #### L 500.08999, L500.97901 ####[place] [address]Ph# [phone] IMMATURE GRAN % 0.4 % Normal Less than 2 [facility] Comment on above: Performed By: #### L 500.46093, L500.56251 ####[address] [address]En# [phone] Lymphocytes 1.30 K/CU MM Normal 0.9-4.4 [facility] Comment on above: Performed By: #### L 500.76750, L500.81318 ####[facility] EKIRWOJJMB[address] [place] [address]Jj# [phone] Lymphocytes/100 leukocytes 26.0 % Normal 20-40 [facility] Comment on above: Performed By: #### L 500.91580, L500.29073 ####[facility] HGGRTXWFQU5412[address] [place] [address]Tm# [phone] MCHC mass conc (RBC) 33.5 g/dL Normal 32.0-36.0 [facility] Comment on above: Performed By: #### L 500.50985, L500.79259 ####[facility] GPDBXJLJTI0917 [place], [place] [address]Bu# [phone] MCV 86.0 fL Normal 80.0-99.0 [facility] Comment on above: Performed By: #### L 500.67820, L500.36877 ####[facility] ESOVFZTDXK3384 [place], [place] [address]Ej# [phone] MONO ABS 0.50 K/CU MM Normal 0.1-1.1 [facility] Comment on above: Performed By: #### L 500.25820, L500.27710 ####[address] [address]Pe# [phone] Monocytes/100 leukocytes 9.1 % Normal 2-10 [facility] Comment on above: Performed By: #### L 500.75595, L500.73232 ####[address] [address]Mh# [phone] Neutrophils 3.10 K/CU MM Normal 2.0-8.3 [facility] Comment on above: Performed By: #### L 500.21222, L500.87714 ####[address] [address]Qn# [phone] Neutrophils/100 WBC Auto (Bld) 61.3 % Normal 45-75 [facility] Comment on above: Performed By: #### L 500.98917, L500.42430 ####[facility] LEFOUOAUOZ[address] [place] [address]Na# [phone] Platelet mean volume (PMV) 10.4 fL Normal 9.4-12.4 [facility] Comment on above: Performed By: #### L 500.94609, L500.79587 ####[facility] BXIOPTWQKK047[address] [place] [address]Gb# [phone] Platelets 250 K/CU MM Normal 150-450 [facility] Comment on above: Performed By: #### L 500.47050, L500.79245 ####[facility] UYGITTXCSL1629 [place], [place] [address]Rt# [phone] WBC (Leukocytes) 5.1 K/CU MM Normal 4.5-11.0 [facility] Comment on above: Performed By: #### L 500.92637, L500.26479 ####[facility] BTCNAUSKNW418[address] [place] [address]Yr# [phone] CMPon 07-29-2017 Alanine aminotransferase (ALT) 33 U/L Normal 13-61 [facility] Comment on above: Performed By: #### L 500.05047, L500.22453 ####[facility] QDDJXCXZCK3148 [place], [place] [address]Vc# [phone] Albumin 4.2 g/dL Normal 3.2-5.0 [facility] Comment on above: Performed By: #### L 500.14386, L500.90908 ####[facility] MLOSNKHFNS5140 [place], [place] [address]Jk# [phone] Albumin/Globulin Ratio 1.3 {ratio} Normal 0.8-2.0 [facility] Comment on above: Performed By: #### L 500.72683, L500.64302 ####[facility] OEUYCRYCDN2160 [place], [place] [address]Zg# [phone] ALK PHOS 56 U/L Normal 45-117 [facility] Comment on above: Performed By: #### L 500.40224, L500.02621 ####[facility] WSCDHNZTKO8359 [place], [place] [address]Xx# [phone] Anion gap 6 mmol/L Normal 5-16 [facility] Comment on above: Performed By: #### L 500.71271, L500.85284 ####[facility] CMIAABEZLG0565 [place], [place] [address]Vx# [phone] BILI TOTAL 1.2 MG/DL High 0.2-1.0 [facility] Comment on above: Performed By: #### L 500.70649, L500.51200 ####[facility] XBWQGLVVXV24[address] [place] [address]Eo# [phone] BUN/Creatinine Ratio 13 mg/mg Low 15-24 [facility] Comment on above: Performed By: #### L 500.32750, L500.07282 ####[facility] ZADZSMJLSS[address] [place] [address]Wo# [phone] Calcium 9.0 mg/dL Normal 8.5-10.1 [facility] Comment on above: Performed By: #### L 500.47082, L500.71077 ####[address] [address]Nq# [phone] Chloride 108 mmol/L High 98-107 [facility] Comment on above: Performed By: #### L 500.25672, L500.98207 ####[address] [address]Nn# [phone] CO2 27 mmol/L Normal 21-32 [facility] Comment on above: Performed By: #### L 500.27549, L500.29781 ####[address] [address]Te# [phone] Creatinine 0.856 mg/dL Normal 0.670-1.170 [facility] Comment on above: Result Comment: Raquel ents receiving either N-Acetylcysteine (NAC) orMetamizole prior to venipuncture, may have falsely depressedresults. Performed By: #### L 500.61634, L500.31752 ####[facility] GENILJUZUW[address] [place] [address]Ys# [phone] Globulin 3.3 g/dL Normal 2.2-4.2 [facility] Comment on above: Performed By: #### L 500.86817, L500.78815 ####[facility] BLKEVCKRON5274 [place], [place] [address]Qv# [phone] Glucose mass conc 85 mg/dL Normal 70-100 [facility] Comment on above: Result Comment: 70-1 00-Normal Fasting; [phone]-Vuetvcmp Fasting; greaterthan 126 on more than one result-Diabetes. ADA guidelines Performed By: #### L 500.90582, L500.16235 ####[facility] ZSDMZZPNWG2975 [place], [place] [address]Nw# [phone] Potassium molar conc 4.0 mmol/L Normal 3.5-5.1 [facility] Comment on above: Performed By: #### L 500.33543, L500.15935 ####[facility] ZJXVSSLFUM1053 [place], [place] [address]Vz# [phone] Protein 7.5 g/dL Normal 6.0-8.5 [facility] Comment on above: Performed By: #### L 500.29584, L500.89160 ####[facility] FPJSMADPTI[address] [place] [address]Vj# [phone] SGOT (AST) 18 U/L Normal 8-34 [facility] Comment on above: Performed By: #### L 500.89931, L500.92014 ####[facility] MJKSDVKXBR0357 [place], [place] [address]Lc# [phone] Sodium 140 mmol/L Normal 136-145 [facility] Comment on above: Performed By: #### L 500.74463, L500.13683 ####[facility] BFMVXPJEQO[address] [place] [address]Mo# [phone] Urea nitrogen 11 mg/dL Normal 7-26 [facility] Comment on above: Performed By: #### L 500.34693, L500.29749 ####[facility] KINUBMZMAH1147 [place], [place] [address]Zq# [phone] GFR ESTon 07-29-2017 IF AMER Greater than 60 Normal [facility] Comment on above: Performed By: #### L 500.61709, L500.54465 ####[facility] PVFWVPQETB7815 [place], [place] [address]Cq# [phone] IF non-AFR AMER Greater than 60 Normal [facility] Comment on above: Performed By: #### L 500.50798, L500.13046 ####[facility] VTDQMXYCAE5044 [place], [place] [address]Ij# [phone] LIPIDon 07-29-2017 Cholesterol 159 mg/dL Normal 0-199 [facility] Comment on above: Performed By: #### L 500.81618, L500.74190 ####[facility] QNUQZJHVPR2235 [place], [place] [address]Sg# [phone] HDL Cholesterol 37 mg/dL Low [place] 40 [facility] Comment on above: Result Comment: Raquel ents receiving Metamizole prior to venipuncture, mayhave falsely depressed results. Performed By: #### L 500.22872, L500.46856 ####[facility] YTIGINTLUL9883 [place], [place] [address]Al# [phone] LDL Cholesterol 106 MG/DL Normal 0-129 [facility] Comment on above: Result Comment: ___C HOLESTEROL/HDL RATIO RISK___ CHD RISK = Total CHOL LDL HDL (CHOL/HDL) ----Recommended <200 <130 >35 <3.4 Cecil rderline 200-239 130-159 3.4-4.99 --High >240 >160 >5.0 Performed By: #### L 500.49954, L500.26080 ####[facility] UASLYUUGFU2776 [place], [place] [address]Hd# [phone] Triglyceride 82 mg/dL Normal 30-149 [facility] Comment on above: Result Comment: Raquel ents receiving either N-Acetylcysteine (NAC) orMetamizole prior to venipuncture, may have falsely depressedresults. Performed By: #### L 500.81031, L500.61327 ####[facility] FVLUTYAMLH3146 [place], [place] [address]Fc# [phone] MAGNESIUMon 07-29-2017 Magnesium 2.2 mg/dL Normal 1.6-2.6 [facility] Comment on above: Performed By: #### L 500.72608, L500.08973 ####[facility] GWJVAMGWAT2214 [place], [place] [address]Ru# [phone] URIC ACIDon 07-29-2017 Urate 6.0 mg/dL Normal 2.6-6.0 [facility] Comment on above: Result Comment: Raquel ents receiving Metamizole prior to venipuncture, mayhave falsely depressed results. Performed By: #### L 500.52914, L500.06128 ####[facility] NFUFNAWUUK5491 [place], [place] [address]Zq# [phone] BMPon 07-27-2017 Anion gap 10 mmol/L Normal 5-16 [facility] Comment on above: Order Comment: PT PH ONE#[phone] Performed By: #### L 500.93116, L500.75780 ####[facility] WMULFXDNIY9755 [place], [place] [address]Gv# [phone] BUN/Creatinine Ratio 15 mg/mg Normal 15-24 [facility] Comment on above: Order Comment: PT PH ONE#[phone] Performed By: #### L 500.90010, L500.10332 ####[facility] PWEXYSUBTG0574 [place], [place] [address]Uf# [phone] Calcium 9.5 mg/dL Normal 8.5-10.1 [facility] Comment on above: Order Comment: PT PH ONE#[phone] Performed By: #### L 500.86886, L500.07520 ####[facility] WFSZJGTIGT3263 [place], [place] [address]Uc# [phone] Chloride 105 mmol/L Normal 98-107 [facility] Comment on above: Order Comment: PT PH ONE#[phone] Performed By: #### L 500.47336, L500.49662 ####[facility] BDXDHNPXER[address] [place] [address]Kf# [phone] CO2 27 mmol/L Normal 21-32 [facility] Comment on above: Order Comment: PT PH ONE#[phone] Performed By: #### L 500.20840, L500.97326 ####[facility] ETLYFCHJWF3681 [place], [place] [address]Ud# [phone] Creatinine 0.816 mg/dL Normal 0.670-1.170 [facility] Comment on above: Order Comment: PT PH ONE#[phone] Result Comment: Raquel ents receiving either N-Acetylcysteine (NAC) orMetamizole prior to venipuncture, may have falsely depressedresults. Performed By: #### L 500.81619, L500.48548 ####[facility] IDUFVHSNQD7667 [place], [place] [address]Sb# [phone] Glucose mass conc 76 mg/dL Normal 70-100 [facility] Comment on above: Order Comment: PT PH ONE#[phone] Result Comment: 70-1 00-Normal Fasting; 721-161-Xozhxlph Fasting; greaterthan 126 on more than one result-Diabetes. ADA guidelines Performed By: #### L 500.53048, L500.70072 ####[facility] LQZNWKFJMP3665 [place], [place] [address]Jn# [phone] Potassium molar conc 4.0 mmol/L Normal 3.5-5.1 [facility] Comment on above: Order Comment: PT PH ONE#[phone] Performed By: #### L 500.30017, L500.58718 ####[facility] PSNFHHWDPB6931 [place], [place] [address]Xk# [phone] Sodium 142 mmol/L Normal 136-145 [facility] Comment on above: Order Comment: PT PH ONE#[phone] Performed By: #### L 500.57658, L500.11679 ####[facility] EJPKGSNQKJ8353 [place], [place] [address]Bb# [phone] Urea nitrogen 12 mg/dL Normal 7-26 [facility] Comment on above: Order Comment: PT PH ONE#[phone] Performed By: #### L 500.39609, L500.24916 ####[facility] GGRUYLXFPW4482 [place], [place] [address]Br# [phone] GFR ESTon 07-27-2017 IF AMER Greater than [address] [facility] Comment on above: Order Comment: PT PH ONE#[phone] Performed By: #### L 500.40720, L500.11615 ####[facility] HXXHSHPEPO8505 [place], [place] [address]Ml# [phone] IF non-AFR AMER Greater than 60 Normal [facility] Comment on above: Order Comment: PT PH ONE#[phone] Performed By: #### L 500.87213, L500.08961 ####[facility] HTTKKDJLQA1760 [place], [place] [address]Wx# [phone] BMPon 06-01-2017 Anion gap 8 mmol/L Normal 5-16 [facility] Comment on above: Order Comment: [id number] Performed By: #### L 500.85904, L500.48523 ####[facility] WVNUUVVAAV0835 [place], [place] [address]Ms# [phone] BUN/Creatinine Ratio 14 mg/mg Low 15-24 [facility] Comment on above: Order Comment: [id number] Performed By: #### L 500.95490, L500.68398 ####[facility] ZFNXFTBMNN2560 [place], [place] [address]Oz# [phone] Calcium 9.3 mg/dL Normal 8.5-10.1 [facility] Comment on above: Order Comment: [id number] Performed By: #### L 500.67865, L500.92034 ####[facility] JAKCDGOOUL3640 [place], [place] [address]Zf# [phone] Chloride 104 mmol/L Normal 98-107 [facility] Comment on above: Order Comment: [id number] Performed By: #### L 500.74276, L500.52203 ####[facility] OCPTQDTWMY4607 [place], [place] [address]Re# [phone] CO2 27 mmol/L Normal 21-32 [facility] Comment on above: Order Comment: [id number] 16029 Performed By: #### L 500.57154, L500.51392 ####[facility] LSRQIMTDOK8203 [place], [place] [address]Qo# [phone] Creatinine 0.902 mg/dL Normal 0.670-1.170 [facility] Comment on above: Order Comment: [id number] Result Comment: Raquel ents receiving either N-Acetylcysteine (NAC) orMetamizole prior to venipuncture, may have falsely depressedresults. Performed By: #### L 500.41981, L500.42402 ####[facility] RSFNJCABVB9291 [place], [place] [address]Kw# [phone] Glucose mass conc 84 mg/dL Normal 70-100 [facility] Comment on above: Order Comment: [id number] Result Comment: 70-1 00-Normal Fasting; 638-132-Czyxlyqu Fasting; greaterthan 126 on more than one result-Diabetes. ADA guidelines Performed By: #### L 500.74635, L500.93113 ####[facility] BTHPPONINB7793 [place], [place] [address]Kk# [phone] Potassium molar conc 4.1 mmol/L Normal 3.5-5.1 [facility] Comment on above: Order Comment: 04596 48065 Performed By: #### L 500.30792, L500.94553 ####[facility] [id number] [place], [place] [address]Br# [phone] Sodium 140 mmol/L Normal 136-145 [facility] Comment on above: Order Comment: [id number] Performed By: #### L 500.66978, L500.80792 ####[facility] [id number] [place], [place] [address]Xr# [phone] Urea nitrogen 13 mg/dL Normal 7-26 [facility] Comment on above: Order Comment: [id number] Performed By: #### L 500.92542, L500.76691 ####[facility] [id number] [place], [place] [address]Ve# [phone] GFR ESTon 06-01-2017 IF AMER Greater than [address] [facility] Comment on above: Order Comment: [id number] Performed By: #### L 500.94998, L500.86271 ####[facility] [id number] [place], [place] [address]Wv# [phone] IF non-AFR AMER Greater than 60 Normal [facility] Comment on above: Order Comment: [id number] Performed By: #### L 500.28613, L500.74735 ####[facility] [id number] [place], [place] [address]Oj# [phone] BMPon 05-18-2017 Anion gap 11 mmol/L Normal 5-16 [facility] Comment on above: Performed By: #### L 500.08291, L500.44760 ####[facility] [id number] [place], [place] [address]Yp# [phone] BUN/Creatinine Ratio 16 mg/mg Normal 15-24 [facility] Comment on above: Performed By: #### L 500.72724, L500.29467 ####[facility] [id number] [place] [address]Ac# [phone] Calcium 9.2 mg/dL Normal 8.5-10.1 [facility] Comment on above: Performed By: #### L 500.82707, L500.30084 ####[facility] CJWNWORFVF8970 [place], [place] [address]Zm# [phone] Chloride 105 mmol/L Normal 98-107 [facility] Comment on above: Performed By: #### L 500.37551, L500.28031 ####[facility] [id number] [place] [address]Uq# [phone] CO2 26 mmol/L Normal 21-32 [facility] Comment on above: Performed By: #### L 500.83442, L500.30363 ####[facility] PQVWEMGXRA1984 [place], [place] [address]Ol# [phone] Creatinine 0.897 mg/dL Normal 0.670-1.170 [facility] Comment on above: Result Comment: Raquel ents receiving either N-Acetylcysteine (NAC) orMetamizole prior to venipuncture, may have falsely depressedresults. Performed By: #### L 500.55953, L500.84720 ####[facility] FJFGGITERF8553 [place], [place] [address]Dp# [phone] Glucose mass conc 76 mg/dL Normal 70-100 [facility] Comment on above: Result Comment: 70-1 00-Normal Fasting; [phone]-Tecicrnv Fasting; greaterthan 126 on more than one result-Diabetes. ADA guidelines Performed By: #### L 500.01550, L500.17281 ####[facility] LPOLGIJRZZ6804 [place], [place] [address]Un# [phone] Potassium molar conc 4.1 mmol/L Normal 3.5-5.1 [facility] Comment on above: Performed By: #### L 500.52036, L500.58104 ####[facility] XAGQNAELZO2190 [place], [place] [address]Jr# [phone] Sodium 142 mmol/L Normal 136-145 [facility] Comment on above: Performed By: #### L 500.55749, L500.83343 ####[facility] AMEXZJAPKQ1045 [place], [place] [address]Iq# [phone] Urea nitrogen 14 mg/dL Normal - [facility] Comment on above: Performed By: #### L 500.93241, L500.10134 ####[facility] [address] [place] [address]Pc# [phone] GFR ESTon 05-18-2017 IF AMER Greater than 60 Normal [facility] Comment on above: Performed By: #### L 500.04048, L500.57039 ####[facility] VQIBGGYQJR7158 [place], [place] [address]Ig# [phone] IF non-AFR AMER Greater than [address] [facility] Comment on above: Performed By: #### L 500.77607, L500.74733 ####[facility] CKDROXJBGW9918 [place], [place] [address]Up# [phone] BMPon 04-13-2017 Anion gap 8 mmol/L Normal 5-16 [facility] Comment on above: Order Comment: Performed By: #### L 500.87050, L500.48943 ####[facility] LRWJDWPKMG3352 [place], [place] [address]Di# [phone] BUN/Creatinine Ratio 14 mg/mg Low 15-24 [facility] Comment on above: Order Comment: Performed By: #### L 500.50479, L500.02508 ####[facility] KMMCTSGHFX9408 [place], [place] [address]Jw# [phone] Calcium 8.0 mg/dL Low 8.5-10.1 [facility] Comment on above: Order Comment: Performed By: #### L 500.98192, L500.26288 ####[facility] HNWYJBCYTG5852 [place], [place] [address]Iu# [phone] Chloride 107 mmol/L Normal 98-107 [facility] Comment on above: Order Comment: Performed By: #### L 500.61719, L500.86067 ####[facility] FZVLKFTBXY9323 [place], [place] [address]Ui# [phone] CO2 27 mmol/L Normal 21-32 [facility] Comment on above: Order Comment: Performed By: #### L 500.43479, L500.44411 ####[facility] RFXVMSTWKY1807 [place], [place] [address]Ik# [phone] Creatinine 0.945 mg/dL Normal 0.670-1.170 [facility] Comment on above: Order Comment: Result Comment: Raquel ents receiving either N-Acetylcysteine (NAC) orMetamizole prior to venipuncture, may have falsely depressedresults. Performed By: #### L 500.79055, L500.60173 ####[facility] JOLZPWVYGZ2021 [place], [place] [address]Nr# [phone] Glucose mass conc 78 mg/dL Normal 70-100 [facility] Comment on above: Order Comment: Result Comment: 70-1 00-Normal Fasting; [phone]-Agciewvm Fasting; greaterthan 126 on more than one result-Diabetes. ADA guidelines Performed By: #### L 500.90676, L500.72363 ####[facility] PADENDRZJU1470 [place], [place] [address]Oz# [phone] Potassium molar conc 4.1 mmol/L Normal 3.5-5.1 [facility] Comment on above: Order Comment: Performed By: #### L 500.72753, L500.46507 ####[facility] XJMXPSPAMJ1301 [place], [place] [address]Sm# [phone] Sodium 141 mmol/L Normal 136-145 [facility] Comment on above: Order Comment: Performed By: #### L 500.26568, L500.65694 ####[facility] KKDTHKVXBR1509 [place], [place] [address]Kh# [phone] Urea nitrogen 13 mg/dL Normal 7-26 [facility] Comment on above: Order Comment: Performed By: #### L 500.59385, L500.52398 ####[facility] JAIYRATQUU0311 [place], [place] [address]Hr# [phone] GFR ESTon 04-13-2017 IF AMER Greater than [address] [facility] Comment on above: Order Comment: Performed By: #### L 500.37050, L500.40878 ####[facility] TBUUAQLRAK2479 [place], [place] [address]Jq# [phone] IF non-AFR AMER Greater than 60 Normal [facility] [place] Comment on above: Order Comment: Performed By: #### L 500.41466, L500.29245 ####[facility] IHFVIGLHUE1255 [place], [place] [address]Np# [phone] BMPon 03-30-2017 Anion gap 6 mmol/L Normal 5-16 [facility] Comment on above: Order Comment: Performed By: #### L 500.01252, L500.00991 ####[facility] [place], [place] [address]Qf# [phone] BUN/Creatinine Ratio 12 mg/mg Low 15-24 [facility] Comment on above: Order Comment: Performed By: #### L 500.76028, L500.66802 ####[facility] YZLEUWNPAZ3999 [place], [place] [address]Om# [phone] Calcium 9.1 mg/dL Normal 8.5-10.1 [facility] Comment on above: Order Comment: Performed By: #### L 500.59498, L500.26115 ####[facility] FFPBOWLACU3589 [place], [place] [address]Lz# [phone] Chloride 106 mmol/L Normal 98-107 [facility] Comment on above: Order Comment: Performed By: #### L 500.61073, L500.05447 ####[facility] WSWREUMIOD3121 [place], [place] [address]Ij# [phone] CO2 27 mmol/L Normal 21-32 [facility] Comment on above: Order Comment: Performed By: #### L 500.12928, L500.38388 ####[facility] IVPWAOZLMN9714 [place], [place] [address]Hl# [phone] Creatinine 0.965 mg/dL Normal 0.670-1.170 [facility] Comment on above: Order Comment: Result Comment: Raquel ents receiving either N-Acetylcysteine (NAC) orMetamizole prior to venipuncture, may have falsely depressedresults. Performed By: #### L 500.44795, L500.68697 ####[facility] BCOYWKUMJU1813 [place], [place] [address]Bb# [phone] Glucose mass conc 84 mg/dL Normal 70-100 [facility] Comment on above: Order Comment: Result Comment: 70-1 00-Normal Fasting; [phone]-Xluiqfmp Fasting; greaterthan 126 on more than one result-Diabetes. ADA guidelines Performed By: #### L 500.94160, L500.20154 ####[facility] RRNAMQUIFO0060 [place], [place] [address]Oj# [phone] Potassium molar conc 4.3 mmol/L Normal 3.5-5.1 [facility] Comment on above: Order Comment: Performed By: #### L 500.69686, L500.46041 ####[facility] HUAYPGFXMV9477 [place], [place] [address]Hg# [phone] Sodium 140 mmol/L Normal 136-145 [facility] Comment on above: Order Comment: Performed By: #### L 500.16816, L500.88894 ####[facility] GLIVHUYEZC9439 [place], [place] [address]Pu# [phone] Urea nitrogen 12 mg/dL Normal 7-26 [facility] Comment on above: Order Comment: Performed By: #### L 500.36843, L500.19589 ####[facility] GTZKIHMYCQ2683 [place], [place] [address]Xf# [phone] GFR ESTon 03-30-2017 IF AMER Greater than [address] [facility] Comment on above: Order Comment: Performed By: #### L 500.46161, L500.85632 ####[facility] [address] [place] [address]Hp# [phone] IF non-AFR AMER Greater than [address] [facility] Comment on above: Order Comment: Performed By: #### L 500.26666, L500.66521 ####[facility] LWPSYSJDZV2752 [place], [place] [address]Wi# [phone] BMPon 03-15-2017 Anion gap 10 mmol/L Normal 5-16 [facility] Comment on above: Performed By: #### L 500.78810, L500.00051 ####[facility] NQSLIKFUIG8231 [place], [place] [address]Kx# [phone] BUN/Creatinine Ratio 14 mg/mg Low 15-24 [facility] Comment on above: Performed By: #### L 500.71505, L500.81601 ####[facility] EQSQAMNCGN5367 [place], [place] [address]Mc# [phone] Calcium 8.7 mg/dL Normal 8.5-10.1 [facility] Comment on above: Performed By: #### L 500.21226, L500.94599 ####[facility] XQNOGRFDSB8246 [place], [place] [address]Ge# [phone] Chloride 106 mmol/L Normal 98-107 [facility] Comment on above: Performed By: #### L 500.47695, L500.29292 ####[facility] [address] [place] [address]Em# [phone] CO2 22 mmol/L Normal 21-32 [facility] Comment on above: Performed By: #### L 500.64906, L500.17565 ####[facility] NHVUPVNHLU6402 [place], [place] [address]Jz# [phone] Creatinine 0.933 mg/dL Normal 0.670-1.170 [facility] Comment on above: Result Comment: Raquel ents receiving either N-Acetylcysteine (NAC) orMetamizole prior to venipuncture, may have falsely depressedresults. Performed By: #### L 500.42272, L500.04392 ####[facility] SCONGZNULU3602 [place], [place] [address]Fq# [phone] Glucose mass conc 84 mg/dL Normal 70-100 [facility] Comment on above: Result Comment: 70-1 00-Normal Fasting; [phone]-Qkcwqmut Fasting; greaterthan 126 on more than one result-Diabetes. ADA guidelines Performed By: #### L 500.10712, L500.10811 ####[facility] EMAYSCABBJ6821 [place], [place] [address]Mv# [phone] Potassium molar conc 4.8 mmol/L Normal 3.5-5.1 [facility] Comment on above: Performed By: #### L 500.29271, L500.64552 ####[facility] SXLBYCJAUE1515 [place], [place] [address]Wj# [phone] Sodium 138 mmol/L Normal 136-145 [facility] Comment on above: Performed By: #### L 500.63098, L500.70003 ####[facility] LPLHYKMUJU0859 [place], [place] [address]En# [phone] Urea nitrogen 13 mg/dL Normal 7-26 [facility] Comment on above: Performed By: #### L 500.48402, L500.11863 ####[facility] UKMVWMZQCN3340 [place], [place] [address]Ks# [phone] GFR ESTon 03-15-2017 IF AMER Greater than 60 Normal [facility] Comment on above: Performed By: #### L 500.23531, L500.99767 ####[facility] TDNXVODIXW4974 [place], [place] [address]Af# [phone] IF non-AFR AMER Greater than 60 Normal [facility] Comment on above: Performed By: #### L 500.65986, L500.50787 ####[facility] QPGCGZBVPP7166 [place], [place] [address]Wa# [phone] Encounters Encounter Date Encounter Type Care Provider Facility Start: 08-03-2018 End: 08-03-2018 Patient encounter procedure SHWETHA STRINGER Facility:[facility] Start: 07-20-2018 End: 07-21-2018 Patient encounter procedure SHWETHA STRINGER Facility:[facility] Start: 06-28-2018 End: 06-28-2018 Patient encounter procedure SHWETHA STRINGER Facility:[facility] Start: 10-25-2017 Ambulatory Julius Lennon Facility: [facility] Start: 09-01-2017 Ambulatory Julius [place] Facility: [facility] Start: 07-29-2017 Ambulatory [place] Facility: [facility] Start: 07-27-2017 [facility] [place] Facility: [facility] Start: 06-01-2017 Ambulatory [place] Facility: [facility] Start: 05-18-2017 Ambulatory [place] Facility: [facility] Start: 04-13-2017 [facility] [place] Facility: [facility] Start: 03-30-2017 Ambulatory [place] Facility: [facility] Start: 03-15-2017 [facility] [facility] Payers Date Payer Category Payer Unknown [id number] 2.16.8 [id number] 1980 Unknown [id number] 2.16.8 [id number] 1978 Unknown [id number] 2.16.8 [id number] 1978 Unknown [id number] 2.16.8 [id number] 1978 Unknown [id number] 2.16.8 [id number] Unknown [id number] Summary Purpose Family History No Family History Records FoundNo Family History Records FoundNo Family History Records FoundNo Family History Records Found Advance Directives No Advanced Directives Records FoundNo Advanced Directives Records FoundNo Advanced Directives Records FoundNo Advanced Directives Records Found Additional Source Comments (unrecognized sect ion and content) No Status Records FoundNo Status Records FoundNo Status Records FoundNo Status Records Found INFORMATION SOURCE (unrecogn ized section and content) DATE CREATED AUTHOR 03/13/2018 [facility] Ce ravinderer [place] DATE CREATED AUTHOR AUTHOR'S ORGANIZ ATION 08/27/2018 [facility] DATE CREATED AUTHOR AUTHOR'S ORGANIZ ATION 08/27/2018 [facility] DATE CREATED AUTHOR AUTHOR'S ORGANIZ ATION 07/25/2021 [facility] ([place]) FOR RECORDS PERTAINING TO PATIENTS WHO ARE OR HAVE BEEN ENROLLED IN A CHEMICAL DEPENDENCY/SUBSTANCEABUSE PROGRAM, SOME INFORMATION MAY BE OMITTED. This clinical summary was aggregated from multiple sources. Caution should be exercised in using it in the provision of clinical care. This summary normalizes information from multiple sources, and as a consequence, information in this document may materially change the coding, format and clinical context of patient data. In addition, data may be omitted in some cases. CLINICAL DECISIONS SHOULD BE BASED ON THE PRIMARY CLINICAL RECORDS. [facility] provides no warranty or guarantee of the accuracy or completeness of information in this document.
== END | disposition home or self-care (01) ==
DX: G47.10 Hypersomnia, unspecified (principal)
CPT/HCPCS: 95811

== ENCOUNTER → 2024-09-18 | Outpatient (CLI) | payer MEDICAID, SELFPAY | END | disposition home or self-care (01) | LOC: SL 09:39 | PROVIDERS: Referring Provider Internal Medicine Critical Care Medicine; Visit Provider Internal Medicine Critical Care Medicine | DX: Z46.89 Encounter for fitting and adjustment of other specified devices (principal) ==

== ENCOUNTER → 2025-04-25 | Outpatient (CLI) | payer MEDICAID, SELFPAY ==
[2025-04-25 13:26] LABS: FOLATES,SERUM (FOLIC ACID) 8.93 ng/mL (4.60-34.80)
[2025-04-25 13:30] LABS: AST(SGOT) 29 U/L (<=37); Alanine Aminotransfer ALT/SGPT 37 U/L (<=46); Albumin, Serum 4.1 g/dL (3.5-5.0); Alkaline Phosphatase 79 U/L (40-129); Anion Gap 14 (5-15); BUN 10 mg/dL (4-19); BUN/Creat Ratio 9.5 RATIO (10-20); Calcium,Total 9.0 mg/dL (7.6-11.0); Carbon Dioxide 20.4 mmol/L (21.0-32.0); Chloride 106 mmol/L (98-108); Cholesterol 182 mg/dL (<=200); Globulin 3.4 g/dL (2.2-4.2); Glucose 96 mg/dL (70-99); Low Density Lipoprotein Calc. 129 mg/dL; Potassium 3.9 mmol/L (3.3-5.1); Triglycerides 93 mg/dL; Very Low Density Lipoprotein 19 mg/dL (5-40); cholesterol:hdl ratio screen 5.34
[2025-04-25 13:31] LABS: Vitamin B12 248 pg/mL (180-914); Vitamin D,25 Hydroxy < 6.0 ng/mL (30-100)
== END | disposition home or self-care (01) ==
LOC: VSLAB 09:16
PROVIDERS: PCP Nurse Practitioner Family; Visit Provider Nurse Practitioner Family
DX: Z13.1 Encounter for screening for diabetes mellitus (principal); F41.9 Anxiety disorder, unspecified; R63.5 Abnormal weight gain; R20.0 Anesthesia of skin; Z13.220 Encounter for screening for lipoid disorders
CPT/HCPCS: 36415; 80053; 80061; 82306; 82607; 82746; 83036; 84439; 84443

== ENCOUNTER → 2025-07-19 | Outpatient (CLI) | payer MEDICAID, SELFPAY ==
[2025-07-19 15:52] LABS: AST(SGOT) 29 U/L (<=37); Alanine Aminotransfer ALT/SGPT 32 U/L (<=46); Albumin, Serum 4.1 g/dL (3.5-5.0); Alkaline Phosphatase 57 U/L (40-129); Anion Gap 10 (5-15); BUN 11 mg/dL (4-19); BUN/Creat Ratio 10.5 RATIO (10-20); Calcium,Total 9.1 mg/dL (7.6-11.0); Carbon Dioxide 22.7 mmol/L (21.0-32.0); Chloride 109 mmol/L (98-108); Globulin 3.4 g/dL (2.2-4.2); Glucose 88 mg/dL (70-99); Potassium 4.4 mmol/L (3.3-5.1); Vitamin B12 496 pg/mL (180-914); Vitamin D,25 Hydroxy 38.8 ng/mL (30-100)
== END | disposition home or self-care (01) ==
LOC: VSLAB 09:40
PROVIDERS: PCP Nurse Practitioner Family; Visit Provider Nurse Practitioner Family
DX: R73.03 Prediabetes (principal); E55.9 Vitamin D deficiency, unspecified
CPT/HCPCS: 36415; 80053; 82306; 82607; 83036

== ENCOUNTER 2025-07-28 20:06 | Emergency (ER) | payer MEDICAID, SELFPAY ==
[2025-07-28 20:07] VITALS: BP 169/94; PULSE 103; RESP 20; TEMP 37.5; O2SAT 97; BMI 53.1
[2025-07-28 20:10] VITALS: BP 169/94; PULSE 100; RESP 18; TEMP 37.5; O2SAT 97
[2025-07-28] MEDS: Smz/Tmp Ds Tablet 1 TABLET PO (21:15)
[2025-07-28 21:16] VITALS: BP 158/84; PULSE 100; RESP 18; TEMP 37.3; O2SAT 97
--- OUTSIDE RECORDS SUMMARY | 2025-07-28 21:16 | XMS RPT_ITS | CCD ---
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 L500.99087 ####[facility] [address]MCNYNNSXK[address] [place] [address]Qp# [phone] URIC ACIDon 07-29-2017 Urate 6.0 mg/dL Normal 2.6-6.0 [facility] [place] Comment on above: Result Comment: Raquel ents receiving Metamizole prior to venipuncture, mayhave falsely depressed results. Performed By: #### L 500.20182, L500.35895 ####[facility] ZSHXYGNLYR[address] [place] [address]Ab# [phone] BMPon 07-27-2017 Anion gap 10 mmol/L Normal 5-16 [facility] [place] Comment on above: Order Comment: PT PH ONE#[phone] Performed By: #### L 500.32104, L500.97470 ####[facility] DDQDFBCBDM3276 [place], [place] [address]Ir# [phone] BUN/Creatinine Ratio 15 mg/mg Normal 15-24 [facility] [place] Comment on above: Order Comment: PT PH ONE#[phone] Performed By: #### L 500.32709, L500.54314 ####[facility] XQQLMGSPRN0967 [place], [place] [address]Uh# [phone] Calcium 9.5 mg/dL Normal 8.5-10.1 [facility] [place] Comment on above: Order Comment: PT PH ONE#[phone] Performed By: #### L 500.45823, L500.49378 ####[facility] KLBTRRRDNO0392 [place], [place] [address]Ff# [phone] Chloride 105 mmol/L Normal 98-107 [facility] [place] Comment on above: Order Comment: PT PH ONE#[phone] Performed By: #### L 500.51501, L500.41669 ####[facility] JBEEOMOWPB7491 [place], [place] [address]Hd# [phone] CO2 27 mmol/L Normal 21-32 [facility] Comment [facility]: Order Comment: PT PH ONE#[phone] Performed By: #### L 500.20085, L500.12104 ####[facility] DSZIXYGGVD3066 [place], [place] [address]Ja# [phone] Creatinine 0.816 mg/dL Normal 0.670-1.170 [facility] Comment on above: Order Comment: PT PH ONE#[phone] Result Comment: Raquel ents receiving either N-Acetylcysteine (NAC) orMetamizole prior to venipuncture, may have falsely depressedresults. Performed By: #### L 500.97490, L500.90124 ####[facility] VWZNJVIOQW4277 [place], [place] [address]Zf# [phone] Glucose mass conc 76 mg/dL Normal 70-100 [facility] [place] Comment on above: Order Comment: PT PH ONE#[phone] Result Comment: 70-1 00-Normal Fasting; 562-893-Kmhdnyya Fasting; greaterthan 126 on more than one result-Diabetes. ADA guidelines Performed By: #### L 500.54066, L500.26051 ####[facility] VPAKQNRTEA7535 [place], [place] [address]Qj# [phone] Potassium molar conc 4.0 mmol/L Normal 3.5-5.1 [facility] Comment on above: Order Comment: PT PH ONE#[phone] Performed By: #### L 500.93286, L500.28810 ####[facility] AIDGSTCQHX2174 [place], [place] [address]Vm# [phone] Sodium 142 mmol/L Normal 136-145 [facility] Comment on above: Order Comment: PT PH ONE#[phone] Performed By: #### L 500.76026, L500.94397 ####[facility] DKLTRHXMDR6705 [place], [place] [address]Gf# [phone] Urea nitrogen 12 mg/dL Normal 7-26 [facility] Comment on above: Order Comment: PT PH ONE#[phone] Performed By: #### L 500.16394, L500.83621 ####[facility] YIKHLIFLOH9570 [place], [place] [address]Eu# [phone] GFR ESTon 07-27-2017 IF AMER Greater than 60 Normal [facility] [place] Comment on above: Order Comment: PT PH ONE#[phone] Performed By: #### L 500.46274, L500.38063 ####[facility] NMFOOYAXFQ1217 [place], [place] [address]Kw# [phone] IF non-AFR AMER Greater than 60 Normal [facility] [place] Comment on above: Order Comment: PT PH ONE#[phone] Performed By: #### L 500.05112, L500.05108 ####[facility] WTTHTSNZKZ6313 [place], [place] [address]Dg# [phone] BMPon 06-01-2017 Anion gap 8 mmol/L Normal 5-16 [facility] [place] Comment on above: Order Comment: [phone] 18215 Performed By: #### L 500.79473, L500.54774 ####[facility] SHWWVDJVFP5617 [place], [place] [address]Am# [phone] BUN/Creatinine Ratio 14 mg/mg Low 15-24 [facility] [place] Comment on above: Order Comment: 89210 44631 Performed By: #### L 500.49960, L500.90157 ####[facility] HHOFOPRCST1239 [place], [place] [address]Ky# [phone] Calcium 9.3 mg/dL Normal 8.5-10.1 [facility] [place] Comment on above: Order Comment: 70586 81096 Performed By: #### L 500.70352, L500.55660 ####[facility] SDWZIGCMKO[address] [place] [address]Sb# [phone] Chloride 104 mmol/L Normal 98-107 [facility] [place] Comment on above: Order Comment: 58801 09315 Performed By: #### L 500.40867, L500.11089 ####[facility] [address]EQQEYSQQV[address] [place] [address]Jl# [phone] CO2 27 mmol/L Normal 21-32 [facility] [place] Comment on above: Order Comment: 47158 74224 Performed By: #### L 500.87898, L500.27070 ####[facility] JIQAWQSENH3751 [place], [place] [address]Md# [phone] Creatinine 0.902 mg/dL Normal 0.670-1.170 [facility] [place] Comment on above: Order Comment: 46496 16340 Result Comment: Raquel ents receiving either N-Acetylcysteine (NAC) orMetamizole prior to venipuncture, may have falsely depressedresults. Performed By: #### L 500.44125, L500.96730 ####[facility] OVVGMCXBBE7503 [place], [place] [address]Cf# [phone] Glucose mass conc 84 mg/dL Normal 70-100 [facility] [place] Comment on above: Order Comment: [phone] [phone] Result Comment: 70-1 00-Normal Fasting; 114-940-Dqxslubs Fasting; greaterthan 126 on more than one result-Diabetes. ADA guidelines Performed By: #### L 500.62617, L500.09603 ####[facility] AMOLPBCQZK4513 [place], [place] [address]Pf# [phone] Potassium molar conc 4.1 mmol/L Normal 3.5-5.1 [facility] Comment on above: Order Comment: 70513 40366 Performed By: #### L 500.25340, L500.41741 ####[facility] BAOQPQXIGR8749 [place], [place] [address]Go# [phone] Sodium 140 mmol/L Normal 136-145 [facility] Comment on above: Order Comment: 98107 86843 Performed By: #### L 500.75410, L500.53302 ####[facility] VBOHFLKLZV9077 [place], [place] [address]Fh# [phone] Urea nitrogen 13 mg/dL Normal 7-26 [facility] Comment on above: Order Comment: 40422 14474 Performed By: #### L 500.43579, L500.42924 ####[facility] LLZIPFDCIW3070 [place], [place] [address]Fi# [phone] GFR ESTon 06-01-2017 IF AMER Greater than 60 Normal [facility] [place] Comment on above: Order Comment: [phone] 60589 Performed By: #### L 500.49962, L500.41621 ####[facility] OWTQZJOJRF7443 [place], [place] [address]Lp# [phone] IF non-AFR AMER Greater than 60 Normal [facility] [place] Comment on above: Order Comment: 38707 72525 Performed By: #### L 500.34405, L500.61657 ####[facility] GCGZQKJFMA3978 [place], [place] [address]Sz# [phone] BMPon 05-18-2017 Anion gap 11 mmol/L Normal 5-16 [facility] Comment on above: Performed By: #### L 500.97850, L500.46731 ####[facility] DAGFRDHEEB6851 [place], [place] [address]Xw# [phone] BUN/Creatinine Ratio 16 mg/mg Normal 15-24 [facility] [place] Comment on above: Performed By: #### L 500.26802, L500.89188 ####[facility] NQELNTRMWQ0831 [place], [place] [address]Ax# [phone] Calcium 9.2 mg/dL Normal 8.5-10.1 [facility] [place] Comment on above: Performed By: #### L 500.74224, L500.01918 ####[facility] UCUETKHEDS0622 [place], [place] [address]Qu# [phone] Chloride 105 mmol/L Normal 98-107 [facility] [place] Comment on above: Performed By: #### L 500.38923, L500.44404 ####[facility] DDEMJUXKFU0197 [place], [place] [address]Id# [phone] CO2 26 mmol/L Normal 21-32 [facility] [place] Comment on above: Performed By: #### L 500.00436, L500.74048 ####[facility] FPUCORHRTT9311 [place], [place] [address]Jl# [phone] Creatinine 0.897 mg/dL Normal 0.670-1.170 [facility] [place] Comment on above: Result Comment: Raquel ents receiving either N-Acetylcysteine (NAC) orMetamizole prior to venipuncture, may have falsely depressedresults. Performed By: #### L 500.36496, L500.61501 ####[facility] YBYNNLBPPW8087 [place], [place] [address]Vz# [phone] Glucose mass conc 76 mg/dL Normal 70-100 [facility] [place] Comment on above: Result Comment: 70-1 00-Normal Fasting; [phone]-Fiqbtffr Fasting; greaterthan 126 on more than one result-Diabetes. ADA guidelines Performed By: #### L 500.11155, L500.06697 ####[facility] OVIFXCYXYN2212 [place], [place] [address]Dt# [phone] Potassium molar conc 4.1 mmol/L Normal 3.5-5.1 [facility] [place] Comment on above: Performed By: #### L 500.08570, L500.37684 ####[facility] VZSYMSAOCO5836 [place], [place] [address]Xv# [phone] Sodium 142 mmol/L Normal 136-145 [facility] [place] Comment on above: Performed By: #### L 500.94182, L500.15387 ####[facility] BWMXHHTYUM5262 [place], [place] [address]Qc# [phone] Urea nitrogen 14 mg/dL Normal - [facility] [place] Comment on above: Performed By: #### L 500.74626, L500.98986 ####[facility] WRLCDQFATU8471 [place], [place] [address]Xf# [phone] GFR ESTon 05-18-2017 IF AMER Greater than [address] [facility] Comment on above: Performed By: #### L 500.53009, L500.79945 ####[facility] IDJFHGJOIB5306 [place], [place] [address]Et# [phone] IF non-AFR AMER Greater than [address] [facility] Comment on above: Performed By: #### L 500.82510, L500.60410 ####[facility] FDTASGLKYZ7747 [place], [place] [address]Nu# [phone] BMPon 04-13-2017 Anion gap 8 mmol/L Normal 5-16 [facility] [place] Comment on above: Order Comment: Performed By: #### L 500.25981, L500.23488 ####[facility] ZHQWAAWWVW8822 [place], [place] [address]Lt# [phone] BUN/Creatinine Ratio 14 mg/mg Low 15-24 [facility] [place] Comment on above: Order Comment: 74-3 41-0014 Performed By: #### L 500.61809, L500.26598 ####[facility] RMYTDKHHHI2813 [place], [place] [address]Cn# [phone] Calcium 8.0 mg/dL Low 8.5-10.1 [facility] Comment on above: Order Comment: Performed By: #### L 500.07233, L500.53956 ####[facility] XSWDIDQSYJ8516 [place], [place] [address]Ul# [phone] Chloride 107 mmol/L Normal 98-107 [facility] Comment on above: Order Comment: Performed By: #### L 500.75220, L500.27592 ####[facility] RLBUKNXPHB5442 [place], [place] [address]Xj# [phone] CO2 27 mmol/L Normal 21-32 [facility] [place] Comment on above: Order Comment: Performed By: #### L 500.60349, L500.54904 ####[facility] YFTPXWQFSV9979 [place], [place] [address]Og# [phone] Creatinine 0.945 mg/dL Normal 0.670-1.170 [facility] [place] Comment on above: Order Comment: Result Comment: Raquel ents receiving either N-Acetylcysteine (NAC) orMetamizole prior to venipuncture, may have falsely depressedresults. Performed By: #### L 500.70814, L500.71683 ####[facility] PUEUNPONAG7263 [place], [place] [address]Ty# [phone] Glucose mass conc 78 mg/dL Normal 70-100 [facility] [place] Comment on above: Order Comment: Result Comment: 70-1 00-Normal Fasting; 342-743-Ssqhyefx Fasting; greaterthan 126 on more than one result-Diabetes. ADA guidelines Performed By: #### L 500.95045, L500.58155 ####[facility] HETPWZXBHY0867 [place], [place] [address]Cp# [phone] Potassium molar conc 4.1 mmol/L Normal 3.5-5.1 [facility] [place] Comment on above: Order Comment: 740-3 -4 Performed By: #### L 500.11147, L500.64174 ####[facility] RGDXRHUFCU0196 [place], [place] [address]Ol# [phone] Sodium 141 mmol/L Normal 136-145 [facility] [place] Comment on above: Order Comment: 0-3 -0014 Performed By: #### L 500.07705, L500.66535 ####[facility] SRXHPRJYFY5315 [place], [place] [address]Jl# [phone] Urea nitrogen 13 mg/dL Normal 7-26 [facility] [place] Comment on above: Order Comment: -3 -4 Performed By: #### L 500.60375, L500.44734 ####[facility] RLKBHRKOPS3662 [place], [place] [address]Jd# [phone] GFR ESTon 04-13-2017 IF AMER Greater than [address] [facility] Comment on above: Order Comment: 0-3 -0014 Performed By: #### L 500.14596, L500.73170 ####[facility] HMPZAFVUKE4387 [place], [place] [address]Tw# [phone] IF non-AFR AMER Greater than [address] [facility] Comment on above: Order Comment: 74-3 -4 Performed By: #### L 500.25875, L500.60613 ####[facility] LDKFOZFKDK2322 [place], [place] [address]Jc# [phone] BMPon 03-30-2017 Anion gap 6 mmol/L Normal 5-16 [facility] [place] Comment on above: Order Comment: 740.3 .4 Performed By: #### L 500.29644, L500.60584 ####[facility] CWBKOJMZFA1426 [place], [place] [address]Lm# [phone] BUN/Creatinine Ratio 12 mg/mg Low 15-24 [facility] [place] Comment on above: Order Comment: Performed By: #### L 500.15476, L500.88139 ####[facility] BOMLJKGTJY9270 [place], [place] [address]Sw# [phone] Calcium 9.1 mg/dL Normal 8.5-10.1 [facility] Comment on above: Order Comment: . Performed By: #### L 500.01380, L500.78814 ####[facility] AUXOLLTCMY0885 [place], [place] [address]Gt# [phone] Chloride 106 mmol/L Normal 98-107 [facility] [place] Comment on above: Order Comment: Performed By: #### L 500.23348, L500.77543 ####[facility] BYPXNAJAGH6178 [place], [place] [address]Bo# [phone] CO2 27 mmol/L Normal 21-32 [facility] Comment on above: Order Comment: Performed By: #### L 500.19187, L500.13363 ####[facility] GSKXLFJFKP4545 [place], [place] [address]Wc# [phone] Creatinine 0.965 mg/dL Normal 0.670-1.170 [facility] Comment on above: Order Comment: ..13 Result Comment: Raquel ents receiving either N-Acetylcysteine (NAC) orMetamizole prior to venipuncture, may have falsely depressedresults. Performed By: #### L 500.06411, L500.99549 ####[facility] NYSHNBWEKP4357 [place], [place] [address]Hw# [phone] Glucose mass conc 84 mg/dL Normal 70-100 [facility] [place] Comment on above: Order Comment: ..13 Result Comment: 70-1 00-Normal Fasting; [phone]-Aagpittt Fasting; greaterthan 126 on more than one result-Diabetes. ADA guidelines Performed By: #### L 500.10124, L500.71791 ####[facility] UUZERUUIZE3361 [place], [place] [address]Da# [phone] Potassium molar conc 4.3 mmol/L Normal 3.5-5.1 [facility] Comment on above: Order Comment: Performed By: #### L 500.51960, L500.78705 ####[facility] DLWOWXLTQE4484 [place], [place] [address]Zr# [phone] Sodium 140 mmol/L Normal 136-145 [facility] Comment on above: Order Comment: Performed By: #### L 500.47244, L500.38746 ####[facility] EYRMUDGBBS3207 [place], [place] [address]We# [phone] Urea nitrogen 12 mg/dL Normal 7-26 [facility] Comment on above: Order Comment: Performed By: #### L 500.12561, L500.78300 ####[facility] [address]VGZ[address] [place] [address]Bw# [phone] GFR ESTon 03-30-2017 IF AMER Greater than 60 Normal [facility] [place] Comment on above: Order Comment: Performed By: #### L 500.82941, L500.19213 ####[facility] LUKWYSDRHZ[address] [place] [address]Km# [phone] IF non-AFR AMER Greater than 60 Normal [facility] [place] Comment on above: Order Comment: Performed By: #### L 500.13604, L500.26571 ####[facility] BTUSXEEHAL5159 [place], [place] [address]Et# [phone] BMPon 03-15-2017 Anion gap 10 mmol/L Normal 5-16 [facility] [place] Comment on above: Performed By: #### L 500.32069, L500.96552 ####[facility] BCFHHACHSV8146 [place], [place] [address]Cx# [phone] BUN/Creatinine Ratio 14 mg/mg Low 15-24 [facility] Comment on above: Performed By: #### L 500.63803, L500.74507 ####[facility] UOCZUYQZIN4451 [place], [place] [address]Ux# [phone] Calcium 8.7 mg/dL Normal 8.5-10.1 [facility] Comment on above: Performed By: #### L 500.43939, L500.98291 ####[facility] [id number] [place], [place] [address]Te# [phone] Chloride 106 mmol/L Normal 98-107 [facility] Comment on above: Performed By: #### L 500.16325, L500.36350 ####[facility] [id number] [place], [place] [address]Ha# [phone] CO2 22 mmol/L Normal 21-32 [facility] Comment on above: Performed By: #### L 500.74009, L500.48972 ####[facility] [id number] [place], [place] [address]Rw# [phone] Creatinine 0.933 mg/dL Normal 0.670-1.170 [facility] Comment on above: Result Comment: Raquel ents receiving either N-Acetylcysteine (NAC) orMetamizole prior to venipuncture, may have falsely depressedresults. Performed By: #### L 500.53977, L500.99841 ####[facility] [id number] [place], [place] [address]Hv# [phone] Glucose mass conc 84 mg/dL Normal 70-100 [facility] Comment on above: Result Comment: 70-1 00-Normal Fasting; 190-949-Vykpiidn Fasting; greaterthan 126 on more than one result-Diabetes. ADA guidelines Performed By: #### L 500.80125, L500.84855 ####[facility] [id number] [place], [place] [address]Tq# [phone] Potassium molar conc 4.8 mmol/L Normal 3.5-5.1 [facility] Comment on above: Performed By: #### L 500.88069, L500.90723 ####[facility] [id number] [place], [place] [address]Jr# [phone] Sodium 138 mmol/L Normal 136-145 [facility] Comment on above: Performed By: #### L 500.51740, L500.60912 ####[facility] [id number] [place], [place] [address]Ah# [phone] Urea nitrogen 13 mg/dL Normal 7-26 [facility] Comment on above: Performed By: #### L [id number], L500.03131 ####[facility] [id number] [place], [place] [address]Tf# [phone] GFR ESTon 03-15-2017 IF AMER Greater than [address] [facility] Comment on above: Performed By: #### L [id number], L500.46328 ####[facility] [id number] [place], [place] [address]Za# [phone] IF non-AFR AMER Greater than [address] [facility] Comment on above: Performed By: #### L [id number], L500.31177 ####[facility] [id number] [place], [place] [address]Qa# [phone] Encounters Encounter Date Encounter Type Care Provider Facility Start: 07-19-2025 End: 07-19-2025 ambulatory [facility] Facility:[facility] Start: 04-25-2025 End: 04-25-2025 ambulatory [facility] Facility:[facility] Start: 09-18-2024 End: 09-18-2024 ambulatory No Primary Care Physician Facility:[facility] Start: 08-30-2024 ambulatory EMELY Child lity:[facility] Start: 08-03-2018 End: 08-03-2018 Patient encounter procedure SHWETHA STRINGER Facility:[facility] Start: 07-20-2018 End: 07-21-2018 Patient encounter procedure SHWETHA STRINGER Facility:[facility] Start: 06-28-2018 End: 06-28-2018 Patient encounter procedure SHWETHA STRINGER Facility:[facility] Start: 10-25-2017 Ambulatory Julius Vrabel Facility: [facility] Start: 09-01-2017 Ambulatory Julius Vrabel Facility: [facility] Start: 07-29-2017 Ambulatory Julius Vrabel Facility: [facility] Start: 07-27-2017 Ambulatory Julius Vrabel Facility: [facility] Start: 06-01-2017 Ambulatory Julius Vrabel Facility: [facility] Start: 05-18-2017 Ambulatory Julius Vrabel Facility: [facility] Start: 04-13-2017 Ambulatory Julius Vrabel Facility: [facility] Start: 03-30-2017 Ambulatory [place] Facility: [facility] Start: 03-15-2017 [facility] Payers Date Payer Category Payer Self-pay 2024 Unknown [id number] 1980 Unknown [id number] 1978 Unknown [id number] 1978 Unknown [id number] 1978 Unknown [id number] 1978 Unknown [id number] 1978 Unknown [id number] .. [id number] Unknown [id number] Unknown [id number] Unknown [id number] Unknown [id number] Summary Purpose Family History No Family History [...] section and content) DATE CREATED AUTHOR 03/13/2018 [facility] [place] DATE CREATED AUTHOR AUTHOR'S ORGANIZ ATION 08/27/2018 [facility] DATE CREATED AUTHOR AUTHOR'S ORGANIZ ATION 08/27/2018 [facility] DATE CREATED AUTHOR AUTHOR'S ORGANIZ ATION 07/25/2021 [facility] ([place]) DATE CREATED AUTHOR AUTHOR'S ORGANIZ ATION 09/10/[address] [facility] DATE CREATED AUTHOR AUTHOR'S ORGANIZ ATION 07/27/2025 [facility] FOR RECORDS PERTAINING TO PATIENTS WHO ARE [...] BE BASED ON THE PRIMARY CLINICAL RECORDS. [facility]. provides no warranty or guarantee of the accuracy or completeness of information in this document.
--- NOTE | 2025-07-28 21:18 | EX.ED.DYSGE1 ---
HPI History of Present Illness Chief Complaint: Cellulitis Narrative Narrative: Chief complaint and HPI: 45-year-old male with past medical history of bipolar 2 disorder, PTSD, bilateral peripheral edema presents for evaluation of redness and pain to the distal left lower extremity. Patient states that he frequently gets blisters on his bilateral lower extremities secondary to bilateral edema. He wears compression stockings. States he developed a blister several days ago in which he itched it and it popped open. States he then developed redness in the area that is now tender. He denies any numbness or tingling. Denies any fever, chills, nausea, vomiting. Not diabetic. Review of systems: See HPI Medications: As listed on the chart Allergies: As listed on the chart PFSH: Per chart Vital signs: As listed on the chart. Reviewed. Physical exam: Gen: A&O x3, NAD Head: Normocephalic, atraumatic Eyes: No sclera icterus, conjunctiva clear ENT: Moist mucous membranes CV: RRR, no murmurs Resp: Lungs CTA BL, no w/r/c Musc: Full range of motion of the bilateral lower extremities, mild bilateral peripheral nonpitting edema, DP/PT pulses +2 bilaterally, compartments soft, patient has erythema and warmth to the distal aspect of the left calf that is mildly tender to palpation consistent with cellulitis, no purulence/crepitus/drainage, good capillary refill, sensation intact Psych: Cooperative, appropriate mood and affect [facility] Medical History (Updated 07/14/18 @ 12:06 by TIMMY Menard) ADHD PTSD (post-traumatic stress disorder) Bipolar 2 disorder Home Medications Medication Instructions Recorded Last Taken Type cholecalciferol (vitamin D3) 1,250 1,250 mcg PO QWEEK 07/28/25 Unknown History mcg (50,000 unit) capsule cyanocobalamin (vitamin B-12) 1,000 mcg PO DAILY 07/28/25 Unknown History 1,000 mcg tablet dextroamphetamine-amphetamine 30 1 tab PO DAILY 07/28/25 Unknown History mg tablet escitalopram oxalate 5 mg tablet 5 mg PO DAILY 07/28/25 Unknown History lisdexamfetamine 70 mg capsule 70 mg PO DAILY 07/28/25 Unknown History (Tesha) Allergy/AdvReac Type Severity Reaction Status Date / Time No Known Allergies Allergy Verified 07/28/25 20:07 Social History Smoking Status: Never smoker EXAM Physical Exam Const Vital Signs: 07/28/25 20:07 07/28/25 20:10 07/28/25 21:16 Temperature 99.5 F H 99.5 F H 99.1 F Temperature Source Oral Oral Pulse Rate 103 H 100 100 Respiratory Rate 20 H 18 18 Blood Pressure 169/94 H 169/94 H 158/84 H Blood Pressure Mean 119 119 108 Pulse Ox 97 97 97 Oxygen Delivery Method Room Air Room Air MDM MDM MDM Narrative Medical decision making narrative: 45-year-old male with past medical history of bipolar 2 disorder, PTSD, bilateral peripheral edema presents for evaluation of redness and pain to the distal left lower extremity. Patient states that he frequently gets blisters on his bilateral lower extremities secondary to bilateral edema. He wears compression stockings. States he developed a blister several days ago in which he itched it and it popped open. States he then developed redness in the area that is now tender. See physical exam findings. Physical exam is consistent with cellulitis of the left lower extremity. He has no systemic symptoms. Cannot rule out DVT as another source however low suspicion given HPI and physical exam. Patient was educated on monitoring for worsening symptoms. Follow-up with primary care physician. Will place on Keflex and Bactrim, first dose given here. Return precautions explained. He confirmed understanding of the plan. Given that I cannot officially rule out DVT due to venous duplex ultrasound not being available he will be given outpatient ultrasound. Impression: 1. Left lower extremity cellulitis Discharge Plan Triage Chief Complaint: Cellulitis ED Provider: [place] Dx/Rx/DC Orders Prescriptions: No Action cyanocobalamin (vitamin B-12) 1,000 mcg tablet 1,000 mcg PO DAILY dextroamphetamine-amphetamine 30 mg tablet 1 tab PO DAILY escitalopram oxalate 5 mg tablet 5 mg PO DAILY lisdexamfetamine [Vyvanse] 70 mg capsule 70 mg PO DAILY cholecalciferol (vitamin D3) 1,250 mcg (50,000 unit) capsule 1,250 mcg PO QWEEK Primary Care Provider: Sherita Fisher Referrals: Sherita Fisher, [facility] [Primary Care Provider, Family Practice] Print Language: Irish
== END 2025-07-28 21:27 | disposition home or self-care (01) ==
PROVIDERS: Emergency Provider Surgery; PCP Nurse Practitioner Family; Visit Provider Surgery
DX: L03.116 Cellulitis of left lower limb (principal); F31.81 Bipolar II disorder; Z79.899 Other long term (current) drug therapy
CPT/HCPCS: 99283